=== PATIENT | male | born 1965 | race Caucasian/White ===

== ENCOUNTER → 2020-07-28 15:15 | Outpatient (CLI) | payer OTHER, SELFPAY ==
--- NOTE | 2020-07-28 15:19 | ECHOCS_ITS ---
Reason For Study: ABNORMAL EKG Procedure This was a 2D Doppler, Color Flow transthoracic echocardiogram. The study was technically difficult. Due to body habitus. Contrast injection was performed. Exam performed in department. Left Ventricle Normal LV size. Left ventricular systolic function is normal. The estimated ejection fraction is 60 %. Stage 1 diastolic dysfunction. No regional wall motion abnormalities noted. Right Ventricle Normal RV size. Normal systolic function. Atria Normal left atrium. Normal right atrium. Mitral Valve Normal mitral valve. Tricuspid Valve Normal tricuspid valve. Mild (1+) tricuspid valve insufficiency. Pulmonary artery systolic pressure is 25 mmHg. Aortic Valve The aortic valve is not well visualized. Pulmonic Valve Normal pulmonic valve. Great Vessels Normal aortic root. The pulmonary artery is normal size. Normal inferior vena cava. Pericardium/Pleural No pericardial effusion. Medication 22 gauge I.V. with prn adaptor inserted into left arm. Diluted definity 3.5ml given slow IV push to enhance endocardial definition. MMode/2D Measurements & Calculations LVIDd: 5.2 cm IVSd: 1.1 cm Ao root diam: 3.6 cm LVIDs: 3.6 cm LVPWd: 1.1 cm RVDd: 3.6 cm FS: 31.9 % LAV(MOD-bp): 60.9 ml LVAd ap4: 36.5 cm2 SV(MOD-sp4): 57.3 ml LAV(MOD-bp) Indexed: 28.0 ml/m2 EDV(MOD-sp4): 116.8 ml LAV(MOD-sp2): 60.4 ml EDV(sp4-el): 124.9 ml LAV(MOD-sp4): 60.7 ml LVAs ap4: 23.7 cm2 ESV(MOD-sp4): 59.5 ml ESV(sp4-el): 60.6 ml EF(MOD-sp4): 49.1 % EF(sp4-el): 51.5 % SV(sp4-el): 64.3 ml LA A4 area: 20.0 cm2 LA dimension(2D): 4.1 cm RA A4 area: 15.3 cm2 Time Measurements MV dec time: 0.27 sec Doppler Measurements & Calculations MV E max patel: 66.5 cm/sec Lat Peak E' Patel: 9.1 cm/sec Med Peak E' Patel: 8.5 cm/sec MV A max patel: 71.5 cm/sec E/E' lat: 7.3 E/E' med: 7.8 MV E/A: 0.93 Ao V2 max: 117.9 cm/sec LV V1 max: 107.3 cm/sec PA V2 max: 98.2 cm/sec Ao max P.6 mmHg LV V1 max P.6 mmHg TR max patel: 237.6 cm/sec TR max P.6 mmHg Interpretation Summary Normal LV size. Left ventricular systolic function is normal. The estimated ejection fraction is 60 %. Stage 1 diastolic dysfunction. Contrast injection was performed. The study was technically limited. Ordering Physician: Carmen Brand Referring Physician: Carmen Brand Performed By: Yarelis Mays RDCS, RVT
== END ==
PROVIDERS: PCP Nurse Practitioner; Referring Provider Nurse Practitioner; Visit Provider Nurse Practitioner
DX: R94.31 Abnormal electrocardiogram [ECG] [EKG] (principal)
CPT/HCPCS: 93306; Q9957; A4216; C8929

== ENCOUNTER 2020-09-20 15:53 | Emergency (ER) | payer OTHER, SELFPAY ==
[2020-09-20 15:54] VITALS: BP 112/68; PULSE 97; RESP 18; TEMP 36; O2SAT 94; BMI 33.3
--- NOTE | 2020-09-20 16:05 | EKG12_ITS ---
Test Reason : A FIB Blood Pressure : / mmHG Vent. Rate : 080 BPM Atrial Rate : 080 BPM P-R Int : 180 ms QRS Dur : 092 ms QT Int : 352 ms P-R-T Axes : 053 -18 059 degrees QTc Int : 405 ms Normal sinus rhythm Voltage criteria for left ventricular hypertrophy Abnormal ECG Confirmed by JERRY BRASWELL, ARMANDO ([id number]), slot editor BRIAN MATIAS ([id number]) on 09/22/2020 8:18:12 AM Referred By: DIANELYS Confirmed By:ARMANDO EDWARDS MD
--- NOTE | 2020-09-20 16:07 | EX.ED.DYSGE1 ---
HPI History of Present Illness Chief Complaint: Palpitations Informant: patient Onset/Context/Timing Onset: Today Current Severity: Mild Maximum Severity: Mild Narrative Narrative: The patient is a 54-year-old male with medical history significant for bronchospasm, hypertension, hyperlipidemia who presents to the emergency department from referral from his primary care due to new onset atrial fibrillation. The patient had Covid in May. He states since then, he has had a lot of difficulty with his recovery. He has been having elevated blood pressures at home. He denies chest pain or shortness of breath. He denies orthopnea or weight gain. He has been following with pulmonology and with his primary care. Today he was in for just a well check. They noticed that his heart rate was regular. EKG was done which was concerning for atrial fibrillation. The patient was sent in for further evaluation. Prior similar symptoms: No Recent Illness/Hospitalization: Yes [facility] Medical History Hypertension Allergy/AdvReac Type Severity Reaction Status Date / Time No Known Allergies Allergy Verified 09/20/20 15:53 Surgical History Previous back surgery Social History Smoking Status: Never smoker ROS ROS ED Constitutional Constitutional ED: Denies chills or fever(s) Eyes Eyes: Denies blurry vision or change in vision ENT ENT ED: Denies ear pain or sore throat Cardiovascular Cardiovascular: Denies chest pain or palpitations Respiratory/Chest Respiratory/Chest: Denies cough, dyspnea or dyspnea on exertion Gastrointestinal Gastrointestinal: Denies abdominal pain, nausea or vomiting Genitourinary Genitourinary ED: Denies dysuria or urinary frequency Musculoskeletal Musculoskeletal: Denies arthralgias or myalgias Integumentary Denies rash Neurologic Neurologic: Denies headache(s) or paresthesias Psychiatric Psychiatric: Denies anxiety or depression Endocrine Endocrinology: Denies polydipsia or polyuria Allergic/Immunologic Allergic/Immunologic ED: Denies urticaria EXAM Physical Exam Const Vital Signs: 09/20/20 15:54 09/20/20 16:08 Temperature 96.8 F L Temperature Source Temporal Pulse Rate 97 Respiratory Rate 18 Respiratory Effort Non-Labored Short of Breath Blood Pressure 112/68 Blood Pressure Mean 82 Pulse Ox 94 Oxygen Delivery Method Room Air Positive well nourished and well developed General Appearance ED: well developed HEENT Reports normocephalic, head/scalp atraumatic and moist mucous membranes Eyes PERRL and EOMs intact bilaterally Neck no lymphadenopathy and supple General: Negative for tenderness Chest Wall inspection of chest normal Resp normal respiratory effort and clear to auscultation bilaterally Cardio no murmurs Rhythm: abnormal rhythm GI normal to inspection, nondistended, normoactive bowel sounds Palpation: Negative for tender, guarding or rebound tenderness present Back/Spine no CVA tenderness Cervical Spine: Negative for cervical spine tenderness Thoracic Spine / Upper Back: Negative for thoracic spinal tenderness Extremity normal to inspection General Extremety ED: Negative for tenderness Neuro oriented x3 and CN's II-XII intact bilaterally Neuro Narrative: No focal deficits appreciated. Sensorium / Orientation: alert Psych mental status grossly normal Skin no rashes or lesions noted, no wounds and skin turgor normal MDM MDM MDM Narrative Medical decision making narrative: At the time the patient had arrived here. EKG was obtained. It was sinus rhythm. There was no acute ischemia. I did review his EKG from the office. It almost looks as if he was having atrial couplets. Patient was kept on a monitor. He would have a few PACs but no definitive atrial fibrillation. Labs were obtained were unremarkable. Chest x-ray shows no evidence of volume overload, pneumothorax, or other dangerous process. With the patient's history, I did discuss his case with Dr. Valdez. At this point, the patient only has a [id number] and we do not have a definitive capture of the atrial fibrillation. With his history of anemia, we are going to hold on anticoagulation which I feel is reasonable. The patient will be set up with a Holter monitor and will be seen in the office later this week with cardiology. He is comfortable with this plan of care. Impression 1. Atrial arrhythmia Lab Data Attestation: I reviewed the patient's lab results. Labs: Laboratory Results - last 24 hr 09/20/20 09/20/20 09/20/20 16:25 16:25 16:25 WBC 9.2 RBC 4.91 Hgb 13.5 Hct 43.2 MCV 88.0 MCH 27.5 MCHC 31.3 L RDW Std Deviation 55.5 H RDW Coeff of Volodymyr 17.2 H Plt Count 210 MPV 11.8 Immature Gran % (Auto) 0.300 Neut % (Auto) 58.6 Lymph % (Auto) 31.7 [place] % (Auto) 7.3 Eos % (Auto) 1.6 Baso % (Auto) 0.5 Absolute Neuts (auto) 5.4 Absolute Lymphs (auto) 2.91 Nucleated RBC % 0 Sodium 139 Potassium 3.8 Chloride 107 Carbon Dioxide 25.0 Anion Gap 7 BUN 16 Creatinine 1.27 Estim Creat Clear Calc 68.66 Est GFR (MDRD) Af Amer 76 Est GFR (MDRD) Non-Af 63 BUN/Creatinine Ratio 12.6 Glucose 108 H Calcium 8.7 Magnesium 2.2 Total Bilirubin 0.40 AST 13 L ALT 31 Alkaline Phosphatase 90 Troponin I < 0.015 B-Natriuretic Peptide 8.7 Total Protein 7.2 Albumin 3.7 Globulin 3.5 Albumin/Globulin Ratio 1.1 Radiography Chest X-Ray - ED: 1 View, Read by ED Physician, Normal, Heart, Lungs, Mediastinum, Bony Structures and No Acute Disease Diagnostic Testing: Radiology Impression Chest X-Ray 09/20/20 16:40 IMPRESSION: No radiographic evidence of acute cardiopulmonary disease. at 1706 Reported and signed by: Tushar Zuniga MD Electronically Signed: Tushar Zuniga MD at 17:04 EDT Tel , Service support , Discharge Plan Triage Chief Complaint: Palpitations ED Provider: Stevan Rodas Dx/Rx/DC Orders Instructions: ED Palpitations Primary Care Provider: Carmen Brand NP Referrals: Buck Joaquin MD [STAFF PHYSICIAN] - 3-5 Days Carmen Brand NP, [employer] [Primary Care Provider] -
--- NOTE | 2020-09-20 16:40 | RAD_ITS ---
HISTORY: sob EXAMINATION/TECHNIQUE: XR Chest 1 View: Portable upright AP chest x-ray COMPARISON: None FINDINGS: LINES/DEVICES: None. LUNGS: No consolidation, edema or effusion. No pneumothorax. MEDIASTINUM AND CARDIOVASCULAR STRUCTURES: Cardiac silhouette not enlarged. Central airways and mediastinal contour are unremarkable for the degree of rotation. BONES AND SOFT TISSUES: No acute bony abnormalities. RAD/Chest 1 View (Portable) IMPRESSION: No radiographic evidence of acute cardiopulmonary disease. at 1706 Reported and signed by: Tushar Zuniga MD Electronically Signed: Tushar Zuniga MD at 17:04 EDT Tel , Service support ,
[2020-09-20 17:10] LABS: Absolute Lymphocyte Count 2.91 X10^3/uL (0.83-4.51); Absolute Neutrophil Count 5.4 X10^3/uL (2.0-7.7); Basophil# 0.05 X10^3/uL; Basophil% 0.5 % (0-1); Eosinophil# 0.15 X10^3/uL; Eosinophils% 1.6 % (0-5); Hematocrit 43.2 % (40-54); Hemoglobin 13.5 g/dL (13.0-16.5); Lymphocyte # 2.91 X10^3/ul (0.83-4.51); Lymphocyte % 31.7 % (19-41); Mean Corp Hgb Conc 31.3 g/dL (32-36); Mean Corpuscular Hgb 27.5 pg (27.0-32.0); Mean Platelet Vol. 11.8 fl (6.2-12.0); Monocyte# 0.67 X10^3/uL; Monocyte% 7.3 % (0-10); NRBC Flagged by Analyzer 0 % (0-5); Neutrophil # 5.38 X10^3/uL (2.7-7.7); Neutrophil % 58.6 % (47-70); Platelet Count 210 K/mm3 (150-450); RBC Distribution Width CV 17.2 % (11.6-14.6); RBC Distribution Width SD 55.5 fl (35.1-43.9); Red Blood Count 4.91 M/mm3 (4.6-6.2); White Blood Count 9.2 K/mm3 (4.4-11.0)
[2020-09-20 17:31] LABS: ALB/GLOB Ratio 1.1 RATIO (0.9-2.4); AST(SGOT) 13 U/L (15-37); Alanine Aminotransfer ALT/SGPT 31 U/L (16-61); Albumin, Serum 3.7 g/dL (3.2-5.0); Alkaline Phosphatase 90 U/L (45-117); Anion Gap 7 (5-15); BUN 16 mg/dL (7-18); BUN/Creat Ratio 12.6 RATIO (10-20); Calcium,Total 8.7 mg/dL (8.5-10.1); Chloride 107 mmol/L (98-107); Creatinine, Serum 1.27 mg/dL (0.70-1.30); EST Glomerular Filtration Rate 63 mL/min (>60); Est Glom Filt Rate - Afr Amer 76 mL/min (>60); Estimated Creatinine Clearance 68.66 ml/min; Globulin 3.5 g/dL (2.2-4.2); Glucose 108 mg/dL (74-106); Magnesium 2.2 mg/dL (1.6-2.6); Potassium 3.8 mmol/L (3.5-5.1); Protein, Total 7.2 g/dL (6.4-8.2); Sodium Level 139 mmol/L (136-145)
[2020-09-20 17:33] LABS: BNP,B-Type NATRIURETIC PEPTIDE 8.7 pg/mL (0-100)
[2020-09-20 18:07] VITALS: BP 119/79; PULSE 66; RESP 17; O2SAT 96
[2020-09-20 18:22] LABS: Ferritin 24 ng/mL (26-388)
== END 2020-09-20 18:12 | disposition home or self-care (01) ==
LOC: ED 16:49
PROVIDERS: Emergency Provider Emergency Medicine; PCP Nurse Practitioner
DX: R00.2 Palpitations (principal); I49.1 Atrial premature depolarization; I10 Essential (primary) hypertension; E78.5 Hyperlipidemia, unspecified; I48.91 Unspecified atrial fibrillation; Z86.2 Personal history of diseases of the blood and blood-forming organs and certain disorders involving the immune mechanism
CPT/HCPCS: 71045; 80053; 82728; 83735; 83880; 84484; 85025; 93005; 93225; 99284; A4216

== ENCOUNTER → 2020-09-20 17:49 | Outpatient (CLI) | payer OTHER, SELFPAY ==
[2020-09-20 15:54] VITALS: BMI 33.3
== END ==
PROVIDERS: PCP Nurse Practitioner; Visit Provider Emergency Medicine
DX: Z00.00 Encounter for general adult medical examination without abnormal findings (principal)
CPT/HCPCS: 93225; 93226

== ENCOUNTER → 2020-10-05 | Outpatient (CLI) | payer OTHER, SELFPAY ==
[2020-09-20 15:54] VITALS: BMI 33.3
[2020-10-05 13:37] LABS: Absolute Lymphocyte Count 3.19 X10^3/uL (0.83-4.51); Absolute Neutrophil Count 4.8 X10^3/uL (2.0-7.7); Basophil# 0.05 X10^3/uL; Basophil% 0.6 % (0-1); Eosinophil# 0.19 X10^3/uL; Eosinophils% 2.2 % (0-5); Hematocrit 45.4 % (40-54); Hemoglobin 14.3 g/dL (13.0-16.5); Lymphocyte # 3.19 X10^3/ul (0.83-4.51); Lymphocyte % 36.1 % (19-41); Mean Corp Hgb Conc 31.5 g/dL (32-36); Mean Corpuscular Hgb 28.3 pg (27.0-32.0); Mean Corpuscular Volume 89.9 fL (80-94); Mean Platelet Vol. 12.2 fl (6.2-12.0); Monocyte# 0.56 X10^3/uL; Monocyte% 6.3 % (0-10); NRBC Flagged by Analyzer 0 % (0-5); Neutrophil # 4.81 X10^3/uL (2.7-7.7); Neutrophil % 54.5 % (47-70); Platelet Count 210 K/mm3 (150-450); RBC Distribution Width CV 16.9 % (11.6-14.6); RBC Distribution Width SD 56.4 fl (35.1-43.9); Red Blood Count 5.05 M/mm3 (4.6-6.2); White Blood Count 8.8 K/mm3 (4.4-11.0)
[2020-10-05 13:49] LABS: D-Dimer Quantitative (DVT/PE) <= 0.27 FEU/ug/m (0.27-0.49)
[2020-10-05 13:50] LABS: BNP,B-Type NATRIURETIC PEPTIDE 41.9 pg/mL (0-100)
[2020-10-05 14:01] LABS: Anion Gap 4 (5-15); BUN 15 mg/dL (7-18); BUN/Creat Ratio 13.5 RATIO (10-20); Calcium,Total 9.1 mg/dL (8.5-10.1); Chloride 109 mmol/L (98-107); Creatinine, Serum 1.11 mg/dL (0.70-1.30); EST Glomerular Filtration Rate 73 mL/min (>60); Est Glom Filt Rate - Afr Amer 89 mL/min (>60); Glucose 116 mg/dL (74-106); Potassium 3.9 mmol/L (3.5-5.1); Sodium Level 140 mmol/L (136-145); Thyroid Stim Hormone (TSH) 0.26 uIU/mL (0.358-3.74)
== END | disposition home or self-care (01) ==
PROVIDERS: PCP Nurse Practitioner; Referring Provider Nurse Practitioner; Visit Provider Nurse Practitioner
DX: R07.9 Chest pain, unspecified (principal)
CPT/HCPCS: 80048; 83880; 84443; 84484; 85025; 85379

== ENCOUNTER 2020-10-14 09:41 | Observation (INO) | payer OTHER, SELFPAY ==
[2020-10-14] VITALS (11 sets, daily range): BP systolic 107–143; BP diastolic 64–99; PULSE 50–113; RESP 11–18; TEMP 36.4–36.9; O2SAT 95–99; BMI 34.4; BMI 32.8
--- NOTE | 2020-10-14 09:45 | RAD_ITS ---
STUDY: X-RAY CHEST REASON FOR EXAM: Male, 54 years old. Shortness of breath and chest tightness. TECHNIQUE: Single AP portable view of the chest. COMPARISON: Comparison is made with prior study dated 09/20/2020. FINDINGS: EKG electrodes are seen. The lungs are clear and expanded. There is no demonstrated pleural abnormality. Normal size heart. Normal mediastinum and mercedes. Normal visualized pulmonary arteries. Normal visualized aortic arch and descending thoracic aorta. There are diffuse degenerative changes of the visualized thoracic spine. Normal visualized ribs, clavicles, and shoulders. There is no demonstrated abnormality of the visualized soft tissue structures of the upper abdomen. RAD/Chest 1 View (Portable) IMPRESSION: Normal x-ray examination of the chest. Electronically Signed: Taj Schmidt MD at 10:40 EDT , Service support ,
--- NOTE | 2020-10-14 09:45 | EKG12_ITS ---
Test Reason : Blood Pressure : / mmHG Vent. Rate : 108 BPM Atrial Rate : 110 BPM P-R Int : 000 ms QRS Dur : 084 ms QT Int : 284 ms P-R-T Axes : 000 -15 079 degrees QTc Int : 380 ms Atrial fibrillation Abnormal ECG Confirmed by JERRY BRASWELL, ARMANDO ([id number]), book editor BRIAN MATIAS ([id number]) on 10/18/2020 9:49:17 AM Referred By: Confirmed By:ARMANDO EDWARDS MD
--- NOTE | 2020-10-14 09:48 | ED.VIS.CHEST ---
HPI History of Present Illness Chief Complaint: Chest Pain Informant: patient Onset/Context/Timing Onset: Today Activity at onset: gradual Timing: Continuous Quality: Positive for Heaviness and Tightness Location: Substernal Current Severity: Moderate Maximum Severity: Moderate Worsened By: Nothing Relieved By: Nothing Associated Symptoms: Positive for Dyspnea and Palpitations Narrative Narrative: The patient is a 54-year-old male medical history significant for hypertension hyperlipidemia and recent diagnosis of atrial fibrillation who presents to the emergency department with heart racing and chest tightness. The patient was diagnosed with A. fib just about a month ago. He had a Holter monitor and has been on Eliquis and metoprolol. He states from time to time, he will go into runs of A. fib that lasted a few hours. He states today, just would not go away. He states with it, he felt like he was having chest pressure and some shortness of breath. He has been compliant with his medications. He denies any history of coronary vascular disease. [facility] Medical History (Updated 10/14/20 @ 09:54 by Kika Licona) Atrial fibrillation COVID-19 Hypertension Inguinal hernia Home Medications albuterol sulfate 1 puff INHALATION Q4H PRN PRN 10/14/20 [History Last Taken Unknown] amlodipine 5 mg PO DAILY 10/14/20 [History Last Taken Unknown] apixaban [Eliquis] 5 mg PO BID 10/14/20 [History Last Taken Unknown] cyanocobalamin (vitamin B-12) [Vitamin B-12] 25,800 mcg PO DAILY 10/14/20 [History Last Taken Unknown] duloxetine 60 mg PO DAILY 10/14/20 [History Last Taken Unknown] ferrous sulfate 325 mg PO BID 10/14/20 [History Last Taken Unknown] metoprolol succinate 25 mg PO DAILY 10/14/20 [History Last Taken Unknown] omeprazole 40 mg PO DAILY 10/14/20 [History Last Taken Unknown] valsartan 80 mg PO BID 10/14/20 [History Last Taken Unknown] Allergy/AdvReac Type Severity Reaction Status Date / Time No Known Allergies Allergy Verified 10/14/20 09:45 Surgical History Previous back surgery Social History Smoking Status: Never smoker ROS ROS ED Constitutional Constitutional ED: Denies chills or fever(s) Eyes Eyes: Denies blurry vision or change in vision ENT ENT ED: Denies ear pain or sore throat Cardiovascular Cardiovascular: Reports chest pain, palpitations and racing heartbeat Respiratory/Chest Respiratory/Chest: Denies cough, dyspnea or dyspnea on exertion Gastrointestinal Gastrointestinal: Denies abdominal pain, nausea or vomiting Genitourinary Genitourinary ED: Denies dysuria or urinary frequency Musculoskeletal Musculoskeletal: Denies arthralgias or myalgias Integumentary Denies rash Neurologic Neurologic: Denies headache(s) or paresthesias Psychiatric Psychiatric: Denies anxiety or depression Endocrine Endocrinology: Denies polydipsia or polyuria Allergic/Immunologic Allergic/Immunologic ED: Denies urticaria EXAM Physical Exam Const Vital Signs: 10/14/20 09:42 10/14/20 09:45 10/14/20 10:16 Temperature 97.5 F L Temperature Source Oral Pulse Rate 110 H 113 H Respiratory Rate 18 Blood Pressure 143/93 H Blood Pressure Mean 109 Pulse Ox 99 Oxygen Delivery Method Room Air Room Air 10/14/20 10:21 Temperature Temperature Source Pulse Rate 84 Respiratory Rate 11 L Blood Pressure 118/99 H Blood Pressure Mean 105 Pulse Ox 97 Oxygen Delivery Method Room Air Positive well nourished and well developed General Appearance ED: well developed HEENT Reports normocephalic, head/scalp atraumatic and moist mucous membranes Eyes PERRL and EOMs intact bilaterally Neck no lymphadenopathy and supple General: Negative for tenderness Chest Wall inspection of chest normal Resp normal respiratory effort and clear to auscultation bilaterally Cardio no murmurs Rate: tachycardic Rhythm: abnormal rhythm GI normal to inspection, nondistended, normoactive bowel sounds Palpation: Negative for tender, guarding or rebound tenderness present Back/Spine no CVA tenderness Cervical Spine: Negative for cervical spine tenderness Thoracic Spine / Upper Back: Negative for thoracic spinal tenderness Extremity normal to inspection General Extremety ED: Negative for tenderness Neuro oriented x3 and CN's II-XII intact bilaterally Neuro Narrative: No focal deficits appreciated. Sensorium / Orientation: alert Psych mental status grossly normal Skin no rashes or lesions noted, no wounds and skin turgor normal Heart Score History: Moderately Suspicious ECG: Nonspecific Repolarization Age: >45 - <65 years Risk Factors: 1 or 2 Risk Factors Troponin: </= Normal Limit Score: 4 MDM MDM MDM Narrative Medical decision making narrative: The patient presents to the emergency department with chest tightness, shortness of breath, and palpitations. EKG was obtained. He was in atrial fibrillation with rapid ventricular response. There is no evidence of acute ischemia. The patient was given 5 mg Lopressor with better rate control. Screening labs including cardiac enzymes were unremarkable. I do feel that a lot of his symptoms are likely because of his intermittent atrial fibrillation, but he is been having chest tightness and exertional dyspnea. I do feel that he is going to require further cardiac work-up. The patient will be admitted at this time. Impression Atrial fibrillation with rapid ventricular response 2. Chest tightness Lab Data Attestation: I reviewed the patient's lab results. Labs: Laboratory Results - last 24 hr 10/14/20 10/14/20 09:45 09:45 WBC 11.2 H RBC 5.46 Hgb 15.7 Hct 49.0 MCV 89.7 MCH 28.8 MCHC 32.0 RDW Std Deviation 53.6 H RDW Coeff of Volodymyr 16.4 H Plt Count 221 MPV 11.5 Immature Gran % (Auto) 0.300 Neut % (Auto) 53.7 Lymph % (Auto) 35.4 [place] % (Auto) 7.8 Eos % (Auto) 2.3 Baso % (Auto) 0.5 Absolute Neuts (auto) 6.0 Absolute Lymphs (auto) 3.97 Nucleated RBC % 0 Sodium 140 Potassium 4.5 Chloride 105 Carbon Dioxide 30.0 Anion Gap 5 BUN 16 Creatinine 1.16 Estim Creat Clear Calc 72.80 Est GFR (MDRD) Af Amer 84 Est GFR (MDRD) Non-Af 70 BUN/Creatinine Ratio 13.8 Glucose 105 Calcium 9.2 Magnesium 2.3 Troponin I < 0.015 Radiography Diagnostic Testing: Radiology Impression Chest X-Ray 10/14/20 09:45 IMPRESSION: Normal x-ray examination of the chest. Electronically Signed: Taj Schmidt MD at 10:40 EDT , Service support , Rhythm Strip Rhythm Strip: A-fib Rate: 120 Ectopy: PAC(s) EKG Initial EKG: Attestation: I personally reviewed and interpreted this EKG as follows: Interpretation: Atrial Fibrillation and Non-Specific ST Changes Prior EKG tracings: available for review Prior: Unchanged Discharge Plan Triage Chief Complaint: Chest Pain ED Provider: Stevan Rodas Dx/Rx/DC Orders Prescriptions: No Action cyanocobalamin (vitamin B-12) [Vitamin B-12] 2,500 mcg tablet, sublingual 25,800 mcg PO DAILY RF: 0 valsartan 80 mg tablet 80 mg PO BID RF: 0 amlodipine 5 mg tablet 5 mg PO DAILY RF: 0 omeprazole 40 mg capsule,delayed release(DR/EC) 40 mg PO DAILY RF: 0 ferrous sulfate 325 mg (65 mg iron) tablet 325 mg PO BID RF: 0 metoprolol succinate 25 mg tablet extended release 24 hr 25 mg PO DAILY RF: 0 albuterol sulfate 90 mcg/actuation HFA aerosol inhaler 1 puff INHALATION Q4H PRN PRN (Reason: SOB) RF: 0 duloxetine 60 mg capsule,delayed release(DR/EC) 60 mg PO DAILY RF: 0 Eliquis 5 mg Tablet 5 mg PO BID RF: 0 Primary Care Provider: Carmen Brand NP
[2020-10-14 09:59] LABS: Absolute Lymphocyte Count 3.97 X10^3/uL (0.83-4.51); Basophil# 0.06 X10^3/uL; Basophil% 0.5 % (0-1); Eosinophil# 0.26 X10^3/uL; Eosinophils% 2.3 % (0-5); Hemoglobin 15.7 g/dL (13.0-16.5); Lymphocyte # 3.97 X10^3/ul (0.83-4.51); Lymphocyte % 35.4 % (19-41); Mean Corpuscular Hgb 28.8 pg (27.0-32.0); Mean Corpuscular Volume 89.7 fL (80-94); Mean Platelet Vol. 11.5 fl (6.2-12.0); Monocyte# 0.88 X10^3/uL; Monocyte% 7.8 % (0-10); NRBC Flagged by Analyzer 0 % (0-5); Neutrophil # 6.03 X10^3/uL (2.7-7.7); Neutrophil % 53.7 % (47-70); Platelet Count 221 K/mm3 (150-450); RBC Distribution Width CV 16.4 % (11.6-14.6); RBC Distribution Width SD 53.6 fl (35.1-43.9); Red Blood Count 5.46 M/mm3 (4.6-6.2); White Blood Count 11.2 K/mm3 (4.4-11.0)
[2020-10-14 10:11] LABS: Anion Gap 5 (5-15); BUN 16 mg/dL (7-18); BUN/Creat Ratio 13.8 RATIO (10-20); Calcium,Total 9.2 mg/dL (8.5-10.1); Chloride 105 mmol/L (98-107); Creatinine, Serum 1.16 mg/dL (0.70-1.30); EST Glomerular Filtration Rate 70 mL/min (>60); Est Glom Filt Rate - Afr Amer 84 mL/min (>60); Glucose 105 mg/dL (74-106); Magnesium 2.3 mg/dL (1.6-2.6); Potassium 4.5 mmol/L (3.5-5.1); Sodium Level 140 mmol/L (136-145)
[2020-10-14] MEDS: Aspirin 81 MG TAB.CHEW 324 MG PO (10:13)
[2020-10-14] MEDS: Metoprolol Tartrate 5 MG/5 ML Vial IV (10:15)
[2020-10-14 10:44] LABS: BNP,B-Type NATRIURETIC PEPTIDE 59.7 pg/mL (0-100)
--- NOTE | 2020-10-14 11:44 | PCM.HP.STD ---
HPI - General General Date of Admission: 10/14/20 HPI Narrative TUAN JOSÉ, is a 54 M who Came to ER with chest tightness about 5:15 AM which woke him up. Prior to that, patient recently diagnosed hypertension about 2 to 3 months after he had a Covid 90 infection in May 2020. He is on metoprolol succinate 25 mg daily and valsartan 80 mg p.o. twice daily. About a week ago, he had palpitations and found to be A. fib by PCP and started on metoprolol succinate and Eliquis. Patient also had Holter monitor on September 20, 2020 which showed 17.3% of A. fib, multiple PVCs, trigeminy, PACs and heart rate ranged between 48 to 176/min. 2D echo in July 2020 showed EF 60% with stage I diastolic dysfunction, mild TR otherwise technically limited study. Today, patient complained of chest tightness vague from right to left, 4-6/10 intensity, associated with shortness of breath, mild dizziness and diaphoresis. Patient does not have leg swelling. In ED, heart rate was found 110/min but no hypoxia or tachypnea. Twelve-lead EKG shows A. fib at 108 bpm, QRS 84 ms, QTC 380 ms. Patient was given IV Lopressor 5 mg and heart rate controlled in 80s to 90s per minute. First set of troponin negative. Patient is further admitted. [facility] Medical History (Updated 10/14/20 @ 11:[address] Zachary Dougherty MD) Atrial fibrillation COVID-19 Hypertension Inguinal hernia Home Medications albuterol sulfate 1 puff INHALATION Q4H PRN PRN 10/14/20 [History Last Taken Unknown] amlodipine 5 mg PO DAILY 10/14/20 [History Last Taken Unknown] apixaban [Eliquis] 5 mg PO BID 10/14/20 [History Last Taken Unknown] cyanocobalamin (vitamin B-12) [Vitamin B-12] 25,800 mcg PO DAILY 10/14/20 [History Last Taken Unknown] duloxetine 60 mg PO DAILY 10/14/20 [History Last Taken Unknown] ferrous sulfate 325 mg PO BID 10/14/20 [History Last Taken Unknown] metoprolol succinate 25 mg PO DAILY 10/14/20 [History Last Taken Unknown] omeprazole 40 mg PO DAILY 10/14/20 [History Last Taken Unknown] valsartan 80 mg PO BID 10/14/20 [History Last Taken Unknown] Allergy/AdvReac Type Severity Reaction Status Date / Time No Known Allergies Allergy Verified 10/14/20 09:45 Family History (Updated 10/14/20 @ 11:[address] Zachary Dougherty MD) Father Heart disease CHF in 50s Sister A-fib Surgical History Previous back surgery Social History Smoking Status: Never smoker ROS ROS Narrative Constitutional: Reports mild fatigue and weakness HEENT: Reports systems reviewed and no addt'l complaints, except as documented Respiratory/Chest: Chest tightness and shortness of breath as mentioned in HPI. Gastrointestinal: Denies coffee ground emesis, hematemesis or vomiting Genitourinary: Denies burning urination Musculoskeletal: Reports joint pain and limited range of motion Neurologic: Denies seizure-like activity skin: No ulcer. No rash Endocrinology: Reports systems reviewed and no addt'l complaints, except as documented Hematologic/Lymphatic: Reports systems reviewed and no addt'l complaints, except as documented Rest 12 ROS are negative except as mentioned in HPI Vital Signs Vital Signs Vital Signs: 10/14/20 09:42 10/14/20 09:45 10/14/20 10:16 Temperature 97.5 F L Temperature Source Oral Pulse Rate 110 H 113 H Respiratory Rate 18 Blood Pressure 143/93 H Blood Pressure Mean 109 Pulse Ox 99 Oxygen Delivery Method Room Air Room Air 10/14/20 10:21 10/14/20 10:52 Temperature 97.8 F Temperature Source Temporal Pulse Rate 84 90 Respiratory Rate 11 L 17 Blood Pressure 118/99 H 109/80 Blood Pressure Mean 105 89 Pulse Ox 97 95 Oxygen Delivery Method Room Air Room Air Weight Weight: 233 lb 0.458 oz Body Mass Index (BMI) 34.4 Physical Exam Narrative General: Alert, Oriented x3, Cooperative HEENT: Atraumatic, PERRLA, EOMI, Normocephalic Oral: No Gingival or Mucosal Lesions/ Ulcerations Neck: Supple, No JVD, Negative Carotid Bruits Lungs: Air entry diminished in bilateral lung bases. No crepitation/rhonchi Cardiovascular: Regular rate and rhythm, A. fib, Normal S1, Normal S2, No murmurs Abdomen: Bowel Sounds Present, Soft, Non Tender, Non-Distended : No renal angle tenderness. No suprapubic tenderness. Extremities: No edema, Capillary Refill Less than 3 Seconds Skin: No rashes, No breakdown Musculoskeletal: No Tenderness to Palpation of Joints or Extremities Neurological: Cranial nerves II-XII grossly intact, Deep Tendon Reflexes 2+/4 and Symmetrical, Neuro grossly intact Psych/Mental Status: Normal Affect, Appropriate. Results Lab / Micro Data Result Diagrams: 10/14/20 09:45 10/14/20 09:45 Labs: Laboratory Results - last 24 hr 10/14/20 10/14/20 10/14/20 09:45 09:45 09:45 WBC 11.2 H RBC 5.46 Hgb 15.7 Hct 49.0 MCV 89.7 MCH 28.8 MCHC 32.0 RDW Std Deviation 53.6 H RDW Coeff of Volodymyr 16.4 H Plt Count 221 MPV 11.5 Immature Gran % (Auto) 0.300 Neut % (Auto) 53.7 Lymph % (Auto) 35.4 Woods % (Auto) 7.8 Eos % (Auto) 2.3 Baso % (Auto) 0.5 Absolute Neuts (auto) 6.0 Absolute Lymphs (auto) 3.97 Nucleated RBC % 0 Sodium 140 Potassium 4.5 Chloride 105 Carbon Dioxide 30.0 Anion Gap 5 BUN 16 Creatinine 1.16 Estim Creat Clear Calc 72.80 Est GFR (MDRD) Af Amer 84 Est GFR (MDRD) Non-Af 70 BUN/Creatinine Ratio 13.8 Glucose 105 Calcium 9.2 Magnesium 2.3 Troponin I < 0.015 B-Natriuretic Peptide 59.7 Rhythm Strip Rhythm Strip: A-fib Rate: 120 Ectopy: PAC(s) Radiology Impression Chest X-Ray 10/14/20 09:45 IMPRESSION: Normal x-ray examination of the chest. Electronically Signed: Taj Schmidt MD at 10:40 EDT , Service support , Assessment & Plan Assessment/Plan (1) Atypical chest pain: (2) Atrial fibrillation: PLAN: This 54-year-old woman with recent diagnosis of A. fib admitted with chest tightness and A. fib with RVR. 1. Atypical chest pain/tightness: Patient is being admitted to PCU. Serial troponin enzymes. Repeat EKG. Treadmill nuclear stress test tomorrow a.m. Fasting lipid profile, A1c and TSH tomorrow a.m. 2. A. fib with RVR: Patient on metoprolol succinate 25 mg daily and Eliquis 5 mg twice daily. Started on metoprolol tartrate 25 mg p.o. twice daily and Eliquis continued. Monitor heart rate. 3. Hypertension: On amlodipine and valsartan continued. 4. Obesity grade 2: Weight loss counseling done. BMI 34.2 kg/m? VTE prophylaxis: Already on Eliquis 5 mg twice daily. CODE STATUS: Full Charges/Coding Visit Charges OBSV E&M: 91086 Initial observation care L3
--- NOTE | 2020-10-14 13:01 | EKG12_ITS ---
Test Reason : AFIB Blood Pressure : / mmHG Vent. Rate : 057 BPM Atrial Rate : 057 BPM P-R Int : 180 ms QRS Dur : 090 ms QT Int : 406 ms P-R-T Axes : 016 -21 040 degrees QTc Int : 395 ms Sinus bradycardia Voltage criteria for left ventricular hypertrophy Abnormal ECG When compared with ECG of 14-OCT-2020 09:44, MANUAL COMPARISON REQUIRED, DATA IS UNCONFIRMED Confirmed by ABIODUN BRASWELL, LEENA ([id number]), editor department BRIAN MATIAS ([id number]) on 10/18/2020 10:39:48 AM Referred By: DAVIN Confirmed By:KERI RASCON MD
[2020-10-14] MEDS: 0.9% Normal Saline 1,000 ML 75 ML IV (13:35)
--- NOTE | 2020-10-14 18:34 | NURSING ---
This RN called and talked to pt's to let her know cardiology has been consulted.
[2020-10-14] MEDS: APIXABAN 5 MG TABLET PO (20:41)
[2020-10-14] MEDS: Losartan Potassium 25 MG Tablet PO (20:41)
[2020-10-14] MEDS: Atorvastatin Calcium 40 MG Tablet PO (20:41)
[2020-10-15] VITALS (10 sets, daily range): BP systolic 106–133; BP diastolic 67–84; PULSE 58–106; RESP 15–18; TEMP 36.4–36.7; O2SAT 93–99
--- NOTE | 2020-10-15 01:41 | NURSING ---
Pt requested evening meds before 2100 when this RN was rounding.
[2020-10-15 05:12] LABS: Cholesterol 194 mg/dL (200); High Density Lipoprotein 27 mg/dL; Phosphorus 3.6 mg/dL (2.5-4.9); Triglycerides 188 mg/dL; Very Low Density Lipoprotein 38 mg/dL (5-40)
--- NOTE | 2020-10-15 05:55 | EKG12_ITS ---
Test Reason : AM EKG Blood Pressure : / mmHG Vent. Rate : 060 BPM Atrial Rate : 060 BPM P-R Int : 190 ms QRS Dur : 092 ms QT Int : 444 ms P-R-T Axes : 056 -14 058 degrees QTc Int : 444 ms Normal sinus rhythm Nonspecific T wave abnormality Abnormal ECG Confirmed by JERRY BRASWELL, ARMANDO ([id number]), newspaper copy editor BRIAN MATIAS ([id number]) on 10/19/2020 10:43:33 AM Referred By: DR JIN Confirmed By:ARMANDO EDWARDS MD
[2020-10-15] MEDS: Aspirin E.C. 81 MG Tablet PO (06:18)
[2020-10-15 07:25] LABS: Hemoglobin A1c 5.4 % (3.8-5.6)
[2020-10-15] MEDS: Losartan Potassium 25 MG Tablet PO (10:21)
[2020-10-15] MEDS: DULoxetine Hcl 60 MG Capsule PO (10:22)
[2020-10-15] MEDS: APIXABAN 5 MG TABLET PO (10:22)
[2020-10-15] MEDS: amLODIPine 5 MG Tablet PO (10:22)
[2020-10-15] MEDS: Pantoprazole Sodium 40 MG Tablet PO (10:22)
[2020-10-15] MEDS: Cyanocobalamin 500 MCG Tablet 1000 MCG PO (10:23)
--- NOTE | 2020-10-15 10:57 | PCM.DC ---
Discharge Instructions Diet Discharge Diet: 2000 mg Sodium Diet Activity Discharge Activity: Return to Normal Activity Weight Bearing Status: Weight bearing as tolerated Dressing / Incision Call your doctor if you observe: Fever of 101 or Higher, Coldness, Increased Pain, Numbness or Tingling, Change in Color, Inability to urinate, Inability to have a bowel movement, Shortness of breath, Dizziness, Fainting spells, Swelling in the ankles, Chest pain, Prolonged hiccupping, Increased palpitations (irregular heartbeat) and Calf discomfort Follow Up Care Test Results: Test results from this visit will be discussed in further detail at your follow-up appointment, if applicable. Discharge Plan Admission Admit Date/Time: 10/14/20 11:42 Primary Reason for Your Visit: Atypical chest pain/A. fib with RVR Attending Provider: Zachary Dougherty Primary Care Provider: Carmen Brand NP Consulting Providers: Zenobia Issa Instructions Patient Instructions: Atrial Fibrillation, ED Chest Pain, Noncardiac Additional Instructions / Restrictions: Follow-up Dr. Rae for scheduled sleep study test Discharge Orders/Prescriptions Prescriptions: New atorvastatin 40 mg Tablet 40 mg PO QHS Qty: 30 RF: 2 metoprolol tartrate 25 mg tablet 25 mg PO BID Qty: 60 RF: 2 Continued cyanocobalamin (vitamin B-12) [Vitamin B-12] 2,500 mcg tablet, sublingual 25,800 mcg PO DAILY RF: 0 amlodipine 5 mg tablet 5 mg PO DAILY RF: 0 omeprazole 40 mg capsule,delayed release(DR/EC) 40 mg PO DAILY RF: 0 ferrous sulfate 325 mg (65 mg iron) tablet 325 mg PO BID RF: 0 duloxetine 60 mg capsule,delayed release(DR/EC) 60 mg PO DAILY RF: 0 Eliquis 5 mg Tablet 5 mg PO BID RF: 0 alprazolam 0.25 mg Tablet 0.25 mg PO Q12H PRN (Reason: Anxiety) RF: 0 fluticasone propionate [Flonase Allergy Relief] 50 mcg/actuation [place],Suspension 2 spray INTRANASAL DAILY RF: 0 meclizine 12.5 mg Tablet 12.5 mg PO Q8H PRN (Reason: Vertigo) RF: 0 albuterol sulfate [ProAir HFA] 90 mcg/actuation Hfa Aerosol Inhaler 2 puff INHALATION TID RF: 0 cholecalciferol (vitamin D3) [Vitamin D3] 50 mcg (2,000 unit) Tablet 2,000 unit PO DAILY RF: 0 valsartan 80 mg tablet 80 mg PO BID Qty: 0 RF: 0 Discontinued metoprolol succinate 25 mg tablet extended release 24 hr 25 mg PO DAILY RF: 0 Referrals / Follow Up: Buck Joaquin MD [STAFF PHYSICIAN] - Within 2 Weeks (A fib with RVR/Variable reate) Jeffy Rae MD [STAFF PHYSICIAN] - Within 2 Weeks (sleep study) Carmen Brand NP, [employer]M [employer] CHECKER-C [Primary Care Provider] - Disposition Disposition (needs filled in before D/C Order can be placed): Home, self care
--- NOTE | 2020-10-15 11:00 | PCM.DC.SUM ---
Providers Date of Admission: 10/14/20 Primary Care Physician: KRISH Coronado Consultations 10/14/20 18:25 Consult: Cardiology Routine Consulting Provider: Zenobia Issa Reason for Consult: unstable angina, afib RVR EMERGENT Consult: No MD Notified: Yes Date Notified:: 10/14/20 Time Notified: 18:25 Method of Notification: Verbal Comments:: dr valenzuela spoke with dr issa Reason For Visit: A FIB WITH RVR WITH CHEST PAIN Diagnosis Discharge Diagnosis (1) Atypical chest pain: Status: Acute Code(s): R07.89 - Other chest pain (2) Atrial fibrillation: Status: Acute Code(s): I48.91 - Unspecified atrial fibrillation Medications at Discharge Home Medications Eliquis 5 mg PO BID 10/14/20 albuterol sulfate [ProAir HFA] 2 puff INHALATION TID 10/14/20 alprazolam 0.25 mg PO Q12H PRN 10/14/20 amlodipine 5 mg PO DAILY 10/14/20 cholecalciferol (vitamin D3) [Vitamin D3] 2,000 unit PO DAILY 10/14/20 cyanocobalamin (vitamin B-12) [Vitamin B-12] 25,800 mcg PO DAILY 10/14/20 duloxetine 60 mg PO DAILY 10/14/20 ferrous sulfate 325 mg PO BID 10/14/20 fluticasone propionate [Flonase Allergy Relief] 2 spray INTRANASAL DAILY 10/14/20 meclizine 12.5 mg PO Q8H PRN 10/14/20 omeprazole 40 mg PO DAILY 10/14/20 atorvastatin 40 mg PO QHS #30 tab 10/15/20 metoprolol tartrate 25 mg PO BID #60 tab 10/15/20 valsartan 80 mg PO BID #0 tab 10/15/20 Hospital Course Summary of Care Provided Hospital Course: This 54, gentleman was admitted with chest tightness and A. fib with RVR. Patient already on metoprolol succinate 25 mg daily, Eliquis 5 mg twice daily and valsartan 80 mg twice daily at home. Patient also had Holter monitor on September 20, 2020 which showed 17.3% of A. fib, multiple PVCs, trigeminy, PACs and heart rate ranged between 48 to 176/min. 2D echo in July 2020 showed EF 60% with stage I diastolic dysfunction, mild TR otherwise technically limited study. First EKG in the ER shows A. fib at a rate of 80 bpm. IV Lopressor was given in ED heart rate is controlled to 90s and then bradycardia 50s to 60s per minute. Patient was admitted in PCU. Serial troponin enzymes negative. Patient converted to sinus rhythm in the afternoon of 10/13. Fasting profile shows low HDL, LDL 129. TSH normal. Patient was seen by jewelry setter. Lexiscan nuclear stress shows rare PVCs and isolated ventricular couplets during exercise and shows normal myocardial perfusion within normal limit. Patient again had mild chest discomfort for which EKG was done which shows sinus rhythm with moderate LVH at 64 beats minute. Patient has a scheduled sleep study in first week of November by Dr. Rae and advised to complete it. I think, morbid obesity and possible undiagnosed sleep apnea may be precipitating factor for A. fib. Patient might need to see buffing wheel former machine if sleep study normal and continues to have A. fib with variable heart rate. Discharge medication reconciliation done. Discharge follow-up instructions completed. Discharge process discussed with the patient and all questions were answered to patient's satisfaction. Follow-up with Dr. Joaquin in 2 to 3 weeks. Metoprolol succinate changed to metoprolol 25 mg twice daily for better heart rate control in view of variable heart rate. Total time spent, exact 35 minutes on discharge meds reconciliation, examination, coordination of care with nurses and ancillary staff, review of imaging and blood test and discussion with the patient and his on follow-up instructions Physical Exam Narrative Patient had chest discomfort/pain around afternoon time. Repeat EKG was done which shows sinus rhythm. Discussed with patient and present in the room. Discussed with the jewelry setter. General: Alert, Oriented x3, Cooperative HEENT: Atraumatic, PERRLA, EOMI, Normocephalic Oral: No Gingival or Mucosal Lesions/ Ulcerations Neck: Supple, No JVD, Negative Carotid Bruits Lungs: Air entry diminished in bilateral lung bases. No crepitation/rhonchi Cardiovascular: Regular rate and rhythm, A. fib, Normal S1, Normal S2, No murmurs Abdomen: Bowel Sounds Present, Soft, Non Tender, Non-Distended : No renal angle tenderness. No suprapubic tenderness. Extremities: No edema, Capillary Refill Less than 3 Seconds Skin: No rashes, No breakdown Musculoskeletal: No Tenderness to Palpation of Joints or Extremities Neurological: Cranial nerves II-XII grossly intact, Deep Tendon Reflexes 2+/4 and Symmetrical, Neuro grossly intact Psych/Mental Status: Normal Affect, Appropriate. ABG / Lab / Microbiology Data Result Diagrams: 10/14/20 09:45 10/14/20 09:45 Laboratory: Laboratory Results - last 24 hr 10/14/20 10/14/20 10/15/20 13:15 16:29 04:10 Hemoglobin A1c Phosphorus 3.6 Troponin I < 0.015 < 0.015 Triglycerides 188 Cholesterol 194 LDL Cholesterol 129 VLDL Cholesterol 38 HDL Cholesterol 27 L TSH 0.60 10/15/20 04:10 Hemoglobin A1c 5.4 Phosphorus Troponin I Triglycerides Cholesterol LDL Cholesterol VLDL Cholesterol HDL Cholesterol TSH Meaningful Use Info Meaningful Use Diagnoses (Choose all that apply): None applicable Discharge Plan Admission Admit Date/Time: 10/14/20 11:42 Primary Reason for Your Visit: Atypical chest pain/A. fib with RVR Attending Provider: Zachary Valenzuela Primary Care Provider: Carmen Brand NP Consulting Providers: Zenobia Issa Instructions Patient Instructions: Atrial Fibrillation, ED Chest Pain, Noncardiac Additional Instructions / Restrictions: Patient Problems: Altered Health Status related to Hospitalization Patient Goals: *Optimal Level of Health *Keep Appointments *Medication Compliance *Remain SafeFollow-up Dr. Rae for scheduled sleep study test Discharge Orders/Prescriptions Prescriptions: New atorvastatin 40 mg Tablet 40 mg PO QHS Qty: 30 RF: 2 metoprolol tartrate 25 mg tablet 25 mg PO BID Qty: 60 RF: 2 Continued cyanocobalamin (vitamin B-12) [Vitamin B-12] 2,500 mcg tablet, sublingual 25,800 mcg PO DAILY RF: 0 amlodipine 5 mg tablet 5 mg PO DAILY RF: 0 omeprazole 40 mg capsule,delayed release(DR/EC) 40 mg PO DAILY RF: 0 ferrous sulfate 325 mg (65 mg iron) tablet 325 mg PO BID RF: 0 duloxetine 60 mg capsule,delayed release(DR/EC) 60 mg PO DAILY RF: 0 Eliquis 5 mg Tablet 5 mg PO BID RF: 0 alprazolam 0.25 mg Tablet 0.25 mg PO Q12H PRN (Reason: Anxiety) RF: 0 fluticasone propionate [Flonase Allergy Relief] 50 mcg/actuation [place],Suspension 2 spray INTRANASAL DAILY RF: 0 meclizine 12.5 mg Tablet 12.5 mg PO Q8H PRN (Reason: Vertigo) RF: 0 albuterol sulfate [ProAir HFA] 90 mcg/actuation Hfa Aerosol Inhaler 2 puff INHALATION TID RF: 0 cholecalciferol (vitamin D3) [Vitamin D3] 50 mcg (2,000 unit) Tablet 2,000 unit PO DAILY RF: 0 valsartan 80 mg tablet 80 mg PO BID Qty: 0 RF: 0 Discontinued metoprolol succinate 25 mg tablet extended release 24 hr 25 mg PO DAILY RF: 0 Referrals / Follow Up: Buck Joaquin MD [STAFF PHYSICIAN] - Within 2 Weeks (A fib with RVR/Variable rate please call to schedule follow up appointment) Jeffy Rae MD [STAFF PHYSICIAN] - Within 2 Weeks (sleep study please call to schedule appointment) Carmen Brand NP, B[employer]IC[employer] MIXER-C [Primary Care Provider] - (please call to schedule follow up appointment) Disposition Disposition (needs filled in before D/C Order can be placed): Home, self care Charges/Coding Visit Charges OBSV E&M: 74166 Observation care discharge
--- NOTE | 2020-10-15 11:55 | STRESSREP ---
Stress Test Report Date: 10-15-2020 Procedure: Exercise tolerance test/imaging study Indications: Chest pain; shortness of breath/dyspnea; atrial fibrillation Consent: Per the patient Procedure: The patient exercised on a Manuelito protocol for 9 minutes completing Stage III achieving a peak heart rate of 146 bpm (87% predicted maximal heart rate) with a peak blood pressure 190/88 mmHg and a peak MET capacity of 10 METs. The baseline ECG demonstrated sinus bradycardia. The peak exercise ECG demonstrated somatic/motion artifact with no obvious ECG changes. There was a rare PVC and an isolated ventricular couplet during exercise. The functional capacity was considered good. There was no complaint of chest discomfort during exercise or recovery. The examination was discontinued secondary to dyspnea. Impression: 1. Technically adequate (percent predicted maximal heart rate greater than 85%) exercise tolerance test 2. Peak exercise ECG with somatic/motion artifact with no obvious ECG changes 3. There was a rare PVC and an isolated ventricular couplet during exercise 4. Nuclear images pending Myocardial perfusion imaging study: Technique: The patient was injected with 14.1 mCi of technetium 99m Cardiolite and subsequently rest SPECT Cardiolite nuclear imaging was obtained in the horizontal long, vertical long, and short axis views. The patient exercised on a Manuelito protocol for 9 minutes completing Stage III achieving a peak heart rate of 146 bpm (87% predicted maximal heart rate) with a peak blood pressure 190/88 mmHg and a peak MET capacity of 10 METs. The patient was injected with 44.8 mCi of technetium 99m Cardiolite and subsequently stress SPECT Cardiolite nuclear imaging was obtained in the horizontal long, vertical long, and short axis views. A gated Cardiolite study at peak stress was obtained. Interpretation: Rest and stress SPECT Cardiolite nuclear imaging status post realignment, normalization, and attenuation correction, demonstrates the appearance of relative uniform tracer uptake and myocardial perfusion appearing within normal limits. There is end systolic thickening and brightening. The gated Cardiolite study demonstrates myocardial thickening and inward wall motion. The reported LVEF is 60%. Impression: 1. Rest and stress SPECT Cardiolite nuclear imaging demonstrate relative uniform tracer uptake and myocardial perfusion appearing within normal limits. 2. The gated Cardiolite study reports an LVEF of 60%. This note was generated with [employer]BT[employer] software. It may contain incorrect words, spelling, and punctuation that were not noted in checking the note before signing.
--- NOTE | 2020-10-15 12:46 | EKG12_ITS ---
Test Reason : CP Blood Pressure : / mmHG Vent. Rate : 064 BPM Atrial Rate : 064 BPM P-R Int : 190 ms QRS Dur : 096 ms QT Int : 424 ms P-R-T Axes : 044 -18 060 degrees QTc Int : 437 ms Normal sinus rhythm Voltage criteria for left ventricular hypertrophy Abnormal ECG Confirmed by JERRY BRASWELL, ARMANDO ([id number]), editor farm journal BRIAN MATIAS ([id number]) on 10/19/2020 10:30:35 AM Referred By: DAVIN Confirmed By:ARMANDO EDWARDS MD
[2020-10-15] MEDS: Ferrous Sulfate 325 MG Tablet PO (13:12)
--- NOTE | 2020-10-15 14:53 | PCM.CONS.C ---
Assessment & Plan Assessment/Plan (1) Atrial fibrillation: QUALIFIERS: Atrial fibrillation type: paroxysmal Qualified Code(s): I48.0 - Paroxysmal atrial fibrillation PLAN: Advised patient to resume his beta abel. Explained to him that if his heart rate is in the 50s and does not have any symptoms, he can still continue his beta-abel. Continue Eliquis well. He seems to have significant symptoms when he goes into A. fib. If he does not have sleep apnea then he may need referral to EP to see if he would benefit from ablation. (2) Atypical chest pain: PLAN: Stress test is negative for ischemia. His symptoms seem to be related to his A. fib. HPI Consult Data Date of Consult: 10/15/20 HPI Narrative Reason for Consultation: Chest discomfort HPI Narrative: TUAN JOSÉ, is a 54 M who presents with chest discomfort and palpitations. Patient had a Holter that revealed paroxysmal A. fib. Patient had episodes of chest discomfort during the monitoring period which correlated with A. fib. When patient presented this time also he was in A. fib. He then converted to sinus rhythm and does not have any chest pain at this time. Patient is quite symptomatic with the A. fib and notices it as soon as he has it. He has palpitations, chest discomfort and significant fatigue with it. He has an appointment for a sleep study that is coming up in the near future. Patient had a recent 2D echo which was unremarkable. He had a stress test today which is negative for ischemia. Review of systems: All systems reviewed. All else is negative except that in the [facility] Medical History (Updated 10/15/20 @ 14:[address] Zenobia Issa MD) Atrial fibrillation COVID-19 Hypertension Inguinal hernia Home Medications Eliquis 5 mg PO BID 10/14/20 [History Last Taken Unknown] albuterol sulfate [ProAir HFA] 2 puff INHALATION TID 10/14/20 [History Last Taken Unknown] alprazolam 0.25 mg PO Q12H PRN 10/14/20 [History Last Taken Unknown] amlodipine 5 mg PO DAILY 10/14/20 [History Last Taken Unknown] cholecalciferol (vitamin D3) [Vitamin D3] 2,000 unit PO DAILY 10/14/20 [History Last Taken Unknown] cyanocobalamin (vitamin B-12) [Vitamin B-12] 25,800 mcg PO DAILY 10/14/20 [History Last Taken Unknown] duloxetine 60 mg PO DAILY 10/14/20 [History Last Taken Unknown] ferrous sulfate 325 mg PO BID 10/14/20 [History Last Taken Unknown] fluticasone propionate [Flonase Allergy Relief] 2 spray INTRANASAL DAILY 10/14/20 [History Last Taken Unknown] meclizine 12.5 mg PO Q8H PRN 10/14/20 [History Last Taken Unknown] metoprolol succinate 25 mg PO DAILY 10/14/20 [History Last Taken Unknown] omeprazole 40 mg PO DAILY 10/14/20 [History Last Taken Unknown] valsartan 80 mg PO BID #0 tab 10/15/20 [Rx Last Taken Unknown] Allergy/AdvReac Type Severity Reaction Status Date / Time No Known Allergies Allergy Verified 10/14/20 09:45 Family History (Updated 10/14/20 @ 11:[address] Zachary Dougherty MD) Father Heart disease CHF in 50s Sister A-fib Surgical History Previous back surgery Social History Smoking Status: Never smoker Physical Exam Const alert and oriented x3 Orientation / Consciousness: awake HEENT normocephalic Eyes no scleral icterus Chest inspection of chest normal Resp normal respiratory effort Cardio regular rate, regular rhythm, S1 normal heart sound and S2 normal heart sound Extremity no pedal edema Skin no rashes or lesions noted Neuro oriented x3 Psych mental status grossly normal Charges/Coding Visit Charges Inpatient E&M: 41632 Init Hosp L3 Objective Data Vital Signs: Vital Signs Temp Pulse Resp BP Pulse Ox 97.7 F L 67 15 115/76 93 10/15/20 13:08 10/15/20 13:08 10/15/20 13:08 10/15/20 13:08 10/15/20 13:08 Oxygen Delivery Method Room Air Weight: 222 lb 0.088 oz Body Mass Index (BMI) 32.8 Intake & Output: Intake and Output for Last 24 Hours 10/13/20 10/14/20 10/15/20 23:59 23:59 23:59 Intake Total 400 / 640 1600 / 1600 Balance 400 / 640 1600 / 1600 Lab / Micro Data Result Diagrams: 10/14/20 09:45 10/14/20 09:45 Labs: Laboratory Results - last 24 hr 10/14/20 10/15/20 10/15/20 16:29 04:10 04:10 Hemoglobin A1c 5.4 Phosphorus 3.6 Troponin I < 0.015 Triglycerides 188 Cholesterol 194 LDL Cholesterol 129 VLDL Cholesterol 38 HDL Cholesterol 27 L TSH 0.60 Rhythm Strip Rhythm Strip: A-fib Rate: 120 Ectopy: PAC(s) Cardiology Labs/Tests 10/14/20 16:29: Troponin I < 0.015 10/15/20 04:10: Phosphorus 3.6, Triglycerides 188, Cholesterol 194, LDL Cholesterol 129, VLDL Cholesterol 38, HDL Cholesterol 27 L 10/15/20 04:10: Hemoglobin A1c 5.4 Rhythm: EKG: ECHO: Stress Test: Cardiac Cath: PCI: CT Surgery: Holter monitor: EPS: PPM: CXR: Chest CT Scan:
== END 2020-10-15 15:15 | disposition home or self-care (01) ==
LOC: ED 10:42 → PCU 12:38
PROVIDERS: Admitting Provider Internal Medicine; Emergency Provider Emergency Medicine; PCP Nurse Practitioner; Visit Provider Internal Medicine
DX: I20.0 Unstable angina (principal); I48.0 Paroxysmal atrial fibrillation; I10 Essential (primary) hypertension; E78.5 Hyperlipidemia, unspecified; E66.9 Obesity, unspecified; Z79.899 Other long term (current) drug therapy; Z79.01 Long term (current) use of anticoagulants; Z79.51 Long term (current) use of inhaled steroids; Z86.16 Personal history of COVID-19; Z68.34 Body mass index [BMI] 34.0-34.9, adult
CPT/HCPCS: 36415; 71045; 78452; 80048; 80061; 83036; 83735; 83880; 84100; 84443; 84484; 85025; 93005; 93017; 96361; 96374; 99218; 99251; 99285; 99406; A9500; J7030; A4216; G0378; G0463

== ENCOUNTER → 2021-04-01 14:07 | Outpatient (CLI) | payer OTHER, SELFPAY ==
[2021-04-01 15:29] LABS: Free T3 2.8 pg/mL (2.18-3.98); T4 Free Direct 1.05 ng/dL (0.76-1.46); Thyroid Stim Hormone (TSH) 0.29 uIU/mL (0.358-3.74)
[2021-04-03 10:10] LABS: Thyroid Peroxidase AB 18 IU/mL (0-34)
== END ==
PROVIDERS: PCP Nurse Practitioner; Referring Provider Internal Medicine Endocrinology, Diabetes & Metabolism; Visit Provider Internal Medicine Endocrinology, Diabetes & Metabolism
DX: R94.6 Abnormal results of thyroid function studies (principal)
CPT/HCPCS: 36415; 84439; 84443; 84481; 86376

== ENCOUNTER → 2021-04-08 07:43 | Outpatient (CLI) | payer OTHER, SELFPAY ==
--- NOTE | 2021-04-08 07:44 | US_ITS ---
INDICATION: NODULE EXAMINATION: Ultrasound US Thyroid (eg thyroid, parathyroid, parotid) TECHNIQUE: Means scale and color doppler imaging was performed of the thyroid gland. COMPARISON: None. FINDINGS: RIGHT THYROID LOBE: 4.6 x 2.2 x 1.7 cm. Homogeneous echotexture with normal vascularity. [No thyroid nodules are present. LEFT THYROID LOBE: 5.2 x 1.8 x 1.6 cm. Homogeneous echotexture with normal vascularity. [No thyroid nodules are present. ISTHMUS: 4 mm. No thyroid nodules are present. US/Thyroid IMPRESSION: Negative thyroid ultrasound examination. Electronically Signed: Juan Stanford MD at 10:42 EST Tel , Service support ,
== END ==
PROVIDERS: PCP Nurse Practitioner; Referring Provider Internal Medicine Endocrinology, Diabetes & Metabolism; Visit Provider Internal Medicine Endocrinology, Diabetes & Metabolism
DX: E04.9 Nontoxic goiter, unspecified (principal)
CPT/HCPCS: 76536

== ENCOUNTER → 2021-12-14 | Outpatient (CLI) | payer OTHER, SELFPAY ==
[2021-12-14 10:08] LABS: Absolute Lymphocyte Count 4.54 X10^3/uL (0.83-4.51); Absolute Neutrophil Count 3.9 X10^3/uL (2.0-7.7); Basophil# 0.05 X10^3/uL; Basophil% 0.5 % (0-1); Eosinophil# 0.26 X10^3/uL; Eosinophils% 2.8 % (0-5); Hematocrit 32.3 % (40-54); Hemoglobin 10.8 g/dL (13.0-16.5); Lymphocyte # 4.54 X10^3/ul (0.83-4.51); Lymphocyte % 48.2 % (19-41); Mean Corp Hgb Conc 33.4 g/dL (32-36); Mean Corpuscular Hgb 31.7 pg (27.0-32.0); Mean Corpuscular Volume 94.7 fL (80-94); Mean Platelet Vol. 10.8 fl (6.2-12.0); Monocyte# 0.61 X10^3/uL; Monocyte% 6.5 % (0-10); NRBC Flagged by Analyzer 0 % (0-5); Neutrophil # 3.93 X10^3/uL (2.7-7.7); Neutrophil % 41.8 % (47-70); POSITIVE MORPHOLOGY YES; Platelet Count 221 K/mm3 (150-450); RBC Distribution Width CV 12.3 % (11.6-14.6); RBC Distribution Width SD 42.6 fl (35.1-43.9); Red Blood Count 3.41 M/mm3 (4.6-6.2); White Blood Count 9.4 K/mm3 (4.4-11.0)
[2021-12-14 10:12] LABS: Differential Indicated SCAN CRITERIA MET
[2021-12-14 10:47] LABS: AST(SGOT) 17 U/L (15-37); Alanine Aminotransfer ALT/SGPT 33 U/L (16-61); Albumin, Serum 3.4 g/dL (3.2-5.0); Alkaline Phosphatase 104 U/L (45-117); Anion Gap 2 (5-15); BUN 15 mg/dL (7-18); Calcium,Total 8.7 mg/dL (8.5-10.1); Chloride 112 mmol/L (98-107); Cholesterol 122 mg/dL (200); Creatinine, Serum 0.94 mg/dL (0.70-1.30); EST Glomerular Filtration Rate 89 mL/min (>60); Est Glom Filt Rate - Afr Amer 107 mL/min (>60); Globulin 3.4 g/dL (2.2-4.2); Glucose 107 mg/dL (74-106); High Density Lipoprotein 34 mg/dL; Iron 25 ug/dL (65-175); PSA,Total - Annual Screen 1.99 ng/mL (0.00-4.00); Potassium 4.6 mmol/L (3.5-5.1); Protein, Total 6.8 g/dL (6.4-8.2); Sodium Level 141 mmol/L (136-145); Thyroid Stim Hormone (TSH) 0.35 uIU/mL (0.358-3.74); Triglycerides 73 mg/dL; Very Low Density Lipoprotein 15 mg/dL (5-40)
[2021-12-14 10:49] LABS: Atypical Lymphocyte 1+ %
== END | disposition home or self-care (01) ==
LOC: LAB 09:52
PROVIDERS: PCP Nurse Practitioner Family; Referring Provider Nurse Practitioner Family; Visit Provider Nurse Practitioner Family
DX: I10 Essential (primary) hypertension (principal); E55.9 Vitamin D deficiency, unspecified; R79.89 Other specified abnormal findings of blood chemistry; D64.9 Anemia, unspecified; Z12.5 Encounter for screening for malignant neoplasm of prostate
CPT/HCPCS: 36415; 80053; 80061; 82306; 83540; 84153; 84443; 85025; G0103

== ENCOUNTER → 2021-12-29 | Outpatient (CLI) | payer OTHER, SELFPAY ==
[2021-12-29 09:59] LABS: Absolute Lymphocyte Count 4.82 X10^3/uL (0.83-4.51); Absolute Neutrophil Count 4.3 X10^3/uL (2.0-7.7); Basophil# 0.05 X10^3/uL; Basophil% 0.5 % (0-1); Eosinophil# 0.22 X10^3/uL; Eosinophils% 2.2 % (0-5); Hematocrit 31.9 % (40-54); Hemoglobin 9.9 g/dL (13.0-16.5); Lymphocyte # 4.82 X10^3/ul (0.83-4.51); Lymphocyte % 47.6 % (19-41); Mean Corpuscular Hgb 28.7 pg (27.0-32.0); Mean Corpuscular Volume 92.5 fL (80-94); Mean Platelet Vol. 11.6 fl (6.2-12.0); Monocyte# 0.71 X10^3/uL; NRBC Flagged by Analyzer 0 % (0-5); Neutrophil % 42.5 % (47-70); POSITIVE MORPHOLOGY YES; Platelet Count 228 K/mm3 (150-450); RBC Distribution Width CV 12.5 % (11.6-14.6); RBC Distribution Width SD 42.5 fl (35.1-43.9); RET-HE 23.6 pg (30-35); Red Blood Count 3.45 M/mm3 (4.6-6.2); White Blood Count 10.1 K/mm3 (4.4-11.0)
[2021-12-29 10:03] LABS: Differential Indicated SCAN CRITERIA MET
[2021-12-29 10:27] LABS: Vitamin B12 1746 pg/mL (211-911)
[2021-12-29 10:44] LABS: LDH 161 U/L (87-241)
[2021-12-29 10:56] LABS: Reactive Lymphocyte 1+
== END | disposition home or self-care (01) ==
LOC: LAB 08:34
PROVIDERS: PCP Nurse Practitioner Family; Referring Provider Nurse Practitioner Family; Visit Provider Nurse Practitioner Family
DX: D64.9 Anemia, unspecified (principal)
CPT/HCPCS: 36415; 82607; 82746; 83615; 85025; 85045

== ENCOUNTER 2022-04-11 19:59 | Observation (INO) | payer OTHER, SELFPAY ==
[2022-04-11 20:00] VITALS: BP 88/57; PULSE 112; RESP 24; TEMP 36.7; O2SAT 98; BMI 34.0
[2022-04-11 20:47] VITALS: BP 88/57; PULSE 118; RESP 24; TEMP 36.7; O2SAT 98
[2022-04-11 20:57] LABS: Absolute Lymphocyte Count 1.26 X10^3/uL (0.83-4.51); Absolute Neutrophil Count 10.7 X10^3/uL (2.0-7.7); Basophil# 0.01 X10^3/uL; Basophil% 0.1 % (0-1); Hematocrit 42.9 % (40-54); Hemoglobin 13.8 g/dL (13.0-16.5); Lymphocyte # 1.26 X10^3/ul (0.83-4.51); Lymphocyte % 10.2 % (19-41); Mean Corp Hgb Conc 32.2 g/dL (32-36); Mean Corpuscular Hgb 29.6 pg (27.0-32.0); Mean Corpuscular Volume 91.9 fL (80-94); Mean Platelet Vol. 11.3 fl (6.2-12.0); Monocyte# 0.36 X10^3/uL; Monocyte% 2.9 % (0-10); NRBC Flagged by Analyzer 0 % (0-5); Neutrophil # 10.68 X10^3/uL (2.7-7.7); Neutrophil % 86.5 % (47-70); POSITIVE COUNT YES; Platelet Count 78 K/mm3 (150-450); RBC Distribution Width CV 18.8 % (11.6-14.6); RBC Distribution Width SD 61.5 fl (35.1-43.9); Red Blood Count 4.67 M/mm3 (4.6-6.2); White Blood Count 12.4 K/mm3 (4.4-11.0)
--- NOTE | 2022-04-11 21:00 | RAD_ITS ---
STUDY: X-RAY CHEST REASON FOR EXAM: Male, 56 years old. Neutropenic Fever TECHNIQUE: PA and lateral views of the chest. COMPARISON: January 21, 2021 FINDINGS: Port on the left extends to the superior vena cava. There are monitoring devices. The lungs are clear and expanded. There is no demonstrated pleural abnormality. Normal size heart. Normal mediastinum and mercedes. Normal visualized pulmonary arteries. Normal visualized aortic arch and descending thoracic aorta. There are diffuse degenerative changes of the visualized thoracic spine. There is an increased kyphosis of the thoracic spine. Normal visualized ribs, clavicles, and shoulders. There is no demonstrated abnormality of the visualized soft tissue structures of the upper abdomen. RAD/Chest PA and Lateral IMPRESSION: Degenerative changes, as described above. No demonstrated acute cardiopulmonary process. Electronically Signed: Rafael Stovall MD at 22:14 [facility] ,
[2022-04-11] MEDS: 0.9% Normal Saline 1,000 ML 1000 ML IV (21:06)
[2022-04-11 21:13] LABS: AST(SGOT) 79 U/L (15-37); Alanine Aminotransfer ALT/SGPT 126 U/L (16-61); Albumin, Serum 3.7 g/dL (3.2-5.0); Alkaline Phosphatase 155 U/L (45-117); Anion Gap 8 (5-15); BUN 17 mg/dL (7-18); BUN/Creat Ratio 13.2 RATIO (10-20); Calcium,Total 9.3 mg/dL (8.5-10.1); Chloride 104 mmol/L (98-107); Creatinine, Serum 1.29 mg/dL (0.70-1.30); EST Glomerular Filtration Rate 61 mL/min (>60); Est Glom Filt Rate - Afr Amer 74 mL/min (>60); Estimated Creatinine Clearance 61.86 ml/min; Globulin 3.6 g/dL (2.2-4.2); Glucose 162 mg/dL (74-106); Potassium 4.3 mmol/L (3.5-5.1); Protein, Total 7.3 g/dL (6.4-8.2); Sodium Level 137 mmol/L (136-145)
[2022-04-11 21:15] VITALS: BP 104/79; PULSE 114; RESP 16; O2SAT 96
[2022-04-11 21:16] LABS: Differential Indicated SCAN CRITERIA MET
[2022-04-11 21:20] LABS: Lactic Acid 2.4 mmol/L (0.4-1.9)
[2022-04-11 21:29] LABS: International Normalized Ratio 1.2; Partial Thromboplast Time 23.7 Seconds (24.1-36.2); Prothrombin Time (Protime)PT. 14.5 SECONDS (11.7-14.9)
[2022-04-11 21:57] LABS: Differential Comment SCANNED
[2022-04-11 22:18] VITALS: BP 115/70; PULSE 112; RESP 25; TEMP 36.8; O2SAT 94
--- NOTE | 2022-04-11 22:30 | EDS_ITS ---
HPI History of Present Illness Chief Complaint: Fever Informant: patient Narrative Narrative: Patient is a 56-year-old male with history of colon cancer status post resection and now currently on cycle 5 of chemotherapy. He is presenting after having a fever at home of 1-1.9 orally and having an episode where he felt lightheaded, sweaty and like he might pass out. He also had episode of nausea and vomiting. He called his oncologist, Dr. Rousseau, who recommend he come to the ER for further evaluation. Patient is never had this reaction before. He does currently have a port which is running 41-hour continuous infusion of his chemotherapy. Denies any other GI or symptoms. Denies any chest pain or difficulty breathing. Notes he feels cold. No other complaints at this time. [facility] Medical History Abnormal results of thyroid function studies Atrial fibrillation Colon cancer COVID-19 Essential hypertension HLD (hyperlipidemia) Inguinal hernia KARIN on CPAP PAF (paroxysmal atrial fibrillation) Home Medications amlodipine 5 mg tablet 5 mg PO DAILY 10/14/20 [History Last Taken Unknown] cholecalciferol (vitamin D3) 50 mcg (2,000 unit) tablet (Vitamin D3) 2,000 unit PO DAILY 10/14/20 [History Last Taken Unknown] duloxetine 60 mg capsule,delayed release 60 mg PO DAILY 10/14/20 [History Last Taken Unknown] meclizine 12.5 mg tablet 12.5 mg PO Q8H PRN Vertigo 10/14/20 [History Last Taken Unknown] omeprazole 40 mg capsule,delayed release 40 mg PO DAILY 10/14/20 [History Last Taken Unknown] valsartan 80 mg tablet 80 mg PO BID #0 tabs 10/15/20 [Rx Last Taken Unknown] apixaban 5 mg tablet 5 mg PO BID 12/08/21 [History Last Taken Unknown] metoprolol tartrate 50 mg tablet 50 mg PO BID 02/16/22 [History Last Taken Unknown] atorvastatin 40 mg tablet 40 mg PO QHS #90 tabs 02/24/22 [Rx Last Taken Unknown] ferrous gluconate 324 mg (38 mg iron) tablet mg 04/11/22 [History Last Taken Unknown] potassium chloride 20 mEq tablet,extended release(part/cryst) (Klor-Con M) meq PO 04/11/22 [History Last Taken Unknown] promethazine 25 mg tablet 25 mg PO PRN PRN Nausea 04/11/22 [History Last Taken Unknown] Allergy/AdvReac Type Severity Reaction Status Date / Time No Known Allergies Allergy Verified 04/11/22 19:59 Family History Father Heart disease CHF in 50s Sister A-fib Surgical History History of radiofrequency ablation procedure for cardiac arrhythmia (~02/17/21) Previous back surgery Social History Smoking Status: Never smoker ROS ROS ED Constitutional Constitutional ED: Reports chills, fever(s), sweats and other Details: Near syncope Eyes Eyes: Denies blurry vision ENT ENT ED: Reports rhinorrhea; Denies sore throat Cardiovascular Cardiovascular: Denies chest pain or palpitations Respiratory/Chest Respiratory/Chest: Denies cough or dyspnea Gastrointestinal Gastrointestinal: Reports nausea and vomiting; Denies abdominal pain, constipation or diarrhea Genitourinary Genitourinary ED: Denies dysuria or hematuria Musculoskeletal Musculoskeletal: Denies arthralgias or myalgias Integumentary Denies rash Neurologic Neurologic: Reports paresthesias; Denies headache(s) or weakness Psychiatric Psychiatric: Denies anxiety Endocrine Endocrinology: Reports cold intolerance Hematologic/Lymphatic Hematologic/Lymphatic: Denies easy bleeding or easy bruising EXAM Physical Exam Const Vital Signs: 04/11/22 20:00 04/11/22 20:45 04/11/22 20:47 Temperature 98.0 F 98.0 F Temperature Source Oral Oral Pulse Rate 112 H 118 H Respiratory Rate 24 H 24 H Respiratory Pattern Blood Pressure 88/57 L 88/57 L Blood Pressure Mean 67 67 Pulse Ox 98 98 Oxygen Delivery Method Room Air Room Air Room Air 04/11/22 21:14 04/11/22 21:15 04/11/22 22:18 Temperature 98.2 F Temperature Source Oral Pulse Rate 114 H 112 H Respiratory Rate 16 25 H Respiratory Pattern Normal Blood Pressure 104/79 115/70 Blood Pressure Mean 87 85 Pulse Ox 96 94 Oxygen Delivery Method Room Air Room Air Positive well nourished and well developed General Appearance ED: well developed, NAD and pallor HEENT Reports dry mucous membranes Mouth ED: Yes dry mucous membranes Mouth: dry mucous membranes Eyes PERRL and EOMs intact bilaterally Neck supple and no JVD Neck Narrative: No meningeal signs Chest Wall inspection of chest normal and palpation of chest normal Chest Narrative: Med port and left chest wall, no surrounding tenderness, fluctuance or erythema Resp normal respiratory effort and clear to auscultation bilaterally Cardio regular rhythm and no murmurs Rate: tachycardic GI normal to inspection, nondistended, normoactive bowel sounds Extremity normal to inspection Extremity Narrative: Slightly mottled fingers, patient states this is chronic for him when it is cold out General Extremety ED: Negative for edema or tenderness General Extremity: Negative for edema Neuro oriented x3 Neuro Narrative: No focal deficits appreciated Motor Exam: general weakness Psych mental status grossly normal Skin no rashes or lesions noted General Skin Exam: pallor MDM MDM MDM Narrative Medical decision making narrative: Patient is evaluated for it sounds like a near syncopal episode and fever at home. He is high risk given that he is on chemotherapy. Patient is tachycardic And mildly hypotensive. He is given IV fluids. He has a mild leukocytosis of 12.4 and a lactic acidosis of 2.4. He does have mild transaminitis but he denies any abdominal pain and his abdomen is soft on exam. Work-up otherwise normal. Chest x-ray interpreted by myself as well as radiology does not show any acute process. Case discussed with Dr. Rousseau, oncology, who recommended observation and I covered him with vancomycin and Zosyn. Patient is agreeable this plan of care. Blood pressure is improved with fluid resuscitation however he remains tachycardic. Patient is on Eliquis and has no anemia. Low suspicion for pulmonary emboli. Lab Data Labs: Laboratory Results - last 24 hr 04/11/22 04/11/22 04/11/22 20:30 20:30 20:30 WBC 12.4 H RBC 4.67 Hgb 13.8 Hct 42.9 MCV 91.9 MCH 29.6 MCHC 32.2 RDW Std Deviation 61.5 H RDW Coeff of Volodymyr 18.8 H Plt Count 78 L MPV 11.3 Immature Gran % (Auto) 0.300 Neut % (Auto) 86.5 H Lymph % (Auto) 10.2 L Leslie % (Auto) 2.9 Eos % (Auto) 0.0 Baso % (Auto) 0.1 Absolute Neuts (auto) 10.7 H Absolute Lymphs (auto) 1.26 Nucleated RBC % 0 Differential Comment SCANNED PT 14.5 INR 1.2 APTT 23.7 L Sodium 137 Potassium 4.3 Chloride 104 Carbon Dioxide 25.0 Anion Gap 8 BUN 17 Creatinine 1.29 Estim Creat Clear Calc 61.86 Est GFR (MDRD) Af Amer 74 Est GFR (MDRD) Non-Af 61 BUN/Creatinine Ratio 13.2 Glucose 162 H Lactic Acid Calcium 9.3 Total Bilirubin 0.60 AST 79 H ALT 126 H Alkaline Phosphatase 155 H Total Protein 7.3 Albumin 3.7 Globulin 3.6 Albumin/Globulin Ratio 1.0 04/11/22 20:30 WBC RBC Hgb Hct MCV MCH MCHC RDW Std Deviation RDW Coeff of Volodymyr Plt Count MPV Immature Gran % (Auto) Neut % (Auto) Lymph % (Auto) Leslie % (Auto) Eos % (Auto) Baso % (Auto) Absolute Neuts (auto) Absolute Lymphs (auto) Nucleated RBC % Differential Comment PT INR APTT Sodium Potassium Chloride Carbon Dioxide Anion Gap BUN Creatinine Estim Creat Clear Calc Est GFR (MDRD) Af Amer Est GFR (MDRD) Non-Af BUN/Creatinine Ratio Glucose Lactic Acid 2.4 H* Calcium Total Bilirubin AST ALT Alkaline Phosphatase Total Protein Albumin Globulin Albumin/Globulin Ratio Radiography Diagnostic Testing: Clinical Impression(s) from Imaging Studies Chest X-Ray 04/11/22 21:00 IMPRESSION: Degenerative changes, as described above. No demonstrated acute cardiopulmonary process. Electronically Signed: Rafael Stovall MD at 22:14 EST , Discharge Plan Triage Chief Complaint: Fever ED Provider: Lore Sandoval Dx/Rx/DC Orders Clinical Impression: Fever, unknown origin, Leukocytosis, Elevated lactic acid level, Colon cancer Prescriptions: No Action apixaban 5 mg tablet 5 mg PO BID amlodipine 5 mg tablet 5 mg PO DAILY Label Comments: TAKE 1 TABLET BY MOUTH EVERY DAY omeprazole 40 mg capsule,delayed release(DR/EC) 40 mg PO DAILY duloxetine 60 mg capsule,delayed release(DR/EC) 60 mg PO DAILY Label Comments: TAKE 1 CAPSULE EVERY DAY meclizine 12.5 mg Tablet 12.5 mg PO Q8H PRN (Reason: Vertigo) cholecalciferol (vitamin D3) [Vitamin D3] 50 mcg (2,000 unit) Tablet 2,000 unit PO DAILY valsartan 80 mg tablet 80 mg PO BID Qty: 0 0RF Rx Instructions: Hold for SBP less than 120 mmHg potassium chloride [Klor-Con M20] 20 mEq tablet,ER particles/crystals PO Label Comments: TAKE 1 TABLET BY MOUTH EVERY DAY promethazine 25 mg tablet 25 mg PO PRN PRN (Reason: Nausea) Label Comments: PLEASE SEE ATTACHED FOR DETAILED DIRECTIONS ferrous gluconate 324 mg (38 mg iron) tablet Label Comments: TAKE 1 TABLET BY MOUTH EVERY OTHER DAY metoprolol tartrate 50 mg tablet 50 mg PO BID atorvastatin 40 mg tablet 40 mg PO QHS Qty: 90 3RF Primary Care Provider: Carey Rivero Referrals: Carey Rivero, [facility] [Primary Care Provider] - Disposition Disposition: Acute Care Hospital [facility]
--- NOTE | 2022-04-11 23:21 | HP.PCM.HOS_ITS ---
HPI - General General Date of Admission: 04/11/22 Date of Service: 04/11/22 Chief Complaint: Fever and chills HPI Narrative TUAN JOSÉ, is a 56 M with a significant history of colon cancer status post colectomy and on chemotherapy presents emergency department with fever and chills. Reportedly his temperature at home was 100.9F. He called his oncologist Dr. Rousseau's office and was instructed come to the emergency department. Associated with his symptoms is nausea; anorexia and diaphoresis. Of note his symptoms started about 4 hours after he has completed the first portion of his fifth cycle of chemotherapy. He continues to have a continuous infusion as part of the cycle. The continuous infusion will end in about a day and a half. In the past he has not had any reactions from his chemotherapy. [facility] Medical History Abnormal results of thyroid function studies Atrial fibrillation Colon cancer COVID-19 Electrical isolation of left atrial appendage after cardiac ablation procedure for atrial fibrillation Essential hypertension HLD (hyperlipidemia) Inguinal hernia KARIN on CPAP PAF (paroxysmal atrial fibrillation) Home Medications amlodipine 5 mg tablet 5 mg PO DAILY 10/14/20 [History Last Taken Unknown] cholecalciferol (vitamin D3) 50 mcg (2,000 unit) tablet (Vitamin D3) 2,000 unit PO DAILY 10/14/20 [History Last Taken Unknown] duloxetine 60 mg capsule,delayed release 60 mg PO DAILY 10/14/20 [History Last Taken Unknown] meclizine 12.5 mg tablet 12.5 mg PO Q8H PRN Vertigo 10/14/20 [History Last Taken Unknown] omeprazole 40 mg capsule,delayed release 40 mg PO DAILY 10/14/20 [History Last Taken Unknown] valsartan 80 mg tablet 80 mg PO BID #0 tabs 10/15/20 [Rx Last Taken Unknown] apixaban 5 mg tablet 5 mg PO BID 12/08/21 [History Last Taken Unknown] metoprolol tartrate 50 mg tablet 50 mg PO BID 02/16/22 [History Last Taken Unknown] atorvastatin 40 mg tablet 40 mg PO QHS #90 tabs 02/24/22 [Rx Last Taken Unknown] ferrous gluconate 324 mg (38 mg iron) tablet 324 mg PO DAILY 04/11/22 [History Last Taken Unknown] potassium chloride 20 mEq tablet,extended release(part/cryst) (Klor-Con M) 20 meq PO DAILY 04/11/22 [History Last Taken Unknown] promethazine 25 mg tablet 25 mg PO PRN PRN Nausea 04/11/22 [History Last Taken Unknown] Allergy/AdvReac Type Severity Reaction Status Date / Time No Known Allergies Allergy Verified 04/11/22 19:59 Family History Father Heart disease CHF in 50s Sister A-fib Surgical History History of radiofrequency ablation procedure for cardiac arrhythmia (~02/17/21) Previous back surgery Social History Smoking Status: Never smoker ROS ROS Narrative Pertinent positives and pertinent negatives as noted in HPI. All other systems were reviewed and are negative Vital Signs Vital Signs Vital Signs: 04/11/22 20:00 04/11/22 20:45 04/11/22 20:47 Temperature 98.0 F 98.0 F Temperature Source Oral Oral Pulse Rate 112 H 118 H Respiratory Rate 24 H 24 H Respiratory Pattern Blood Pressure 88/57 L 88/57 L Blood Pressure Mean 67 67 Pulse Ox 98 98 Oxygen Delivery Method Room Air Room Air Room Air 04/11/22 21:14 04/11/22 21:15 04/11/22 22:18 Temperature 98.2 F Temperature Source Oral Pulse Rate 114 H 112 H Respiratory Rate 16 25 H Respiratory Pattern Normal Blood Pressure 104/79 115/70 Blood Pressure Mean 87 85 Pulse Ox 96 94 Oxygen Delivery Method Room Air Room Air Weight Weight: 101.605 kg Body Mass Index (BMI) 34.0 Physical Exam Narrative Physical exam: General: Well-nourished, well-developed. Head: Normocephalic, atraumatic, no tenderness Eyes: Vision is grossly intact. EOMI ENT, no trauma, moist mucous membranes, no rhinorrhea Neck: Nontender, full range of motion. CVS: Regular rate and rhythm. S1-S2 present. No murmur, gallop or rub. Respiratory: clear to auscultation bilaterally, chest wall nontender, no wheezing Abdomen: Soft, nontender, nondistended, normal bowel sounds, no masses : Deferred Back: Nontender, no CVA tenderness. Extremities: Nontender full range of motion, no trauma Skin: Normal color, no trauma, abrasions Neuro: Alert, oriented, cranial nerves II through XII grossly intact. Psychiatry: Normal mood. Normal affect. Not depressed. Not anxious. Results Lab / Micro Data Result Diagrams: 04/11/22 20:30 04/11/22 20:30 Labs: Laboratory Results - last 24 hr 04/11/22 20:30: WBC 12.4 H, RBC 4.67, Hgb 13.8, Hct 42.9, MCV 91.9, MCH 29.6, MCHC 32.2, RDW Std Deviation 61.5 H, RDW Coeff of Volodymyr 18.8 H, Plt Count 78 L, MPV 11.3, Immature Gran % (Auto) 0.300, Neut % (Auto) 86.5 H, Lymph % (Auto) 10.2 L, Burnett % (Auto) 2.9, Eos % (Auto) 0.0, Baso % (Auto) 0.1, Absolute Neuts (auto) 10.7 H, Absolute Lymphs (auto) 1.26, Nucleated RBC % 0, Differential Comment SCANNED 04/11/22 20:30: PT 14.5, INR 1.2, APTT 23.7 L 04/11/22 20:30: Sodium 137, Potassium 4.3, Chloride 104, Carbon Dioxide 25.0, Anion Gap 8, BUN 17, Creatinine 1.29, Estim Creat Clear Calc 61.86, Est GFR (MDRD) Af Amer 74, Est GFR (MDRD) Non-Af 61, BUN/Creatinine Ratio 13.2, Glucose 162 H, Calcium 9.3, Total Bilirubin 0.60, AST 79 H, ALT 126 H, Alkaline Phosphatase 155 H, Total Protein 7.3, Albumin 3.7, Globulin 3.6, Albumin/Globulin Ratio 1.0 04/11/22 20:30: Lactic Acid 2.4 H* Micro: Microbiology 04/11/22 21:30 Nasal Secretion SARS-CoV-2 & FLU Antigen (Rapid) - Final Radiology Impression Chest X-Ray 04/11/22 21:00 IMPRESSION: Degenerative changes, as described above. No demonstrated acute cardiopulmonary process. Electronically Signed: Rafael Stovall MD at 22:14 EST , Assessment & Plan Assessment/Plan (1) Sepsis: (2) Colon cancer: PLAN: Plan Sepsis The patient presented with sepsis without clear etiology; with acute sepsis related organ dysfunction as evidenced by lactic acidosis; and hypotension with initial blood pressure 88/57. Initial lactic acid of 2.4; trend. SIRS criteria: Respiratory rate more than 20 Heart rate more than 90 WBC more than 12,000 (white count is 12,400, no bands. With neutrophilia and lymphopenia). Trend CBC Urinalysis unremarkable. CXR was visualized and independently interpreted. No acute cardiopulmonary process seen. I agree with radiologist interpretation Differential diagnoses include viral syndrome (less likely as there is leukocytosis); adverse effect of drug or other. Started on vancomycin and Zosyn at the emergency department and continued. Colon cancer Stable History of atrial fibrillation Patient with tachycardia and hypotension. Hypotension responded to fluids. We will hold metoprolol for now. Eliquis continued. Placed on telemetry. Prophylaxis: Home Eliquis for A. fib continued. Charges/Coding Visit Charges Inpatient E&M: 65244 Init Hosp L3
[2022-04-11 23:53] VITALS: BP 99/63; PULSE 111; RESP 25; O2SAT 95
[2022-04-11 23:54] VITALS: BP 99/63; PULSE 110; RESP 27; TEMP 37.1; O2SAT 95
[2022-04-12] VITALS (22 sets, daily range): BP systolic 91–113; BP diastolic 52–71; PULSE 69–111; RESP 16–23; TEMP 36.5–38.2; O2SAT 93–100; BMI 34.4
[2022-04-12 00:48] LABS: Reflex Lactate? Y
[2022-04-12 00:55] LABS: Bacteria 0 SEEN /hpf (None Seen); Mucous, Urine 0 SEEN /hpf (<or=2+); Red Blood Cells-Urine 0 SEEN /hpf (0-5); Squamous Epithelial Cells - UA 0 SEEN /hpf (0-5); White Blood Cells 0 SEEN /hpf (0-5)
[2022-04-12 00:59] LABS: Color, Urine Yellow (Yellow); Glucose, Dipstick Normal (Normal); Ketone-Dipstick Negative (Negative); Leukocyte Esterase-Dipstick Negative /ul (Negative); Nitrite-Dipstick Negative (Negative); Occult Blood-Urine Negative /ul (Negative); Protein-Dipstick 15 mg/dl (Negative); Specific Gravity, Urine 1.015 (1.002-1.030); Urine Bilirubin Dipstick Negative (Negative); Urine Clarity Clear (Clear); Urine Urobilinogen Normal (Normal)
--- NOTE | 2022-04-12 01:07 | PCM.RX.CS ---
Consult Pharmacy has been consulted to manage selected antiobiotic: Vancomycin Type of Consult: New start Prior Doses of Antibiotics Received/Current Regimen: Medications Vancomycin HCl 1,250 mg/ (Sodium Chloride) 275 mls @ 167 mls/hr IV Q12H MEAGAN Discontinued Medications Vancomycin HCl 1,500 mg/ (Sodium Chloride) 530 mls @ 250 mls/hr IV X1 ONE Stop: 04/12/22 00:27 Last Admin: 04/11/22 23:18 Dose: 250 mls/hr Labs: Sodium 137 mmol/L (136-145) 04/11/22 20:30 Potassium 4.3 mmol/L (3.5-5.1) 04/11/22 20:30 Chloride 104 mmol/L (98-107) 04/11/22 20:30 Carbon Dioxide 25.0 mmol/L (21.0-32.0) 04/11/22 20:30 Anion Gap 8 (5-15) 04/11/22 20:30 BUN 17 mg/dL (7-18) 04/11/22 20:30 Creatinine 1.29 mg/dL (0.70-1.30) 04/11/22 20:30 Est GFR (MDRD) Af Amer 74 mL/min (>60) 04/11/22 20:30 Est GFR (MDRD) Non-Af 61 mL/min (>60) 04/11/22 20:30 BUN/Creatinine Ratio 13.2 RATIO (10-20) 04/11/22 20:30 Glucose 162 mg/dL (74-106) H 04/11/22 20:30 Microbiology: Microbiology 04/11/22 21:30 Nasal Secretion SARS-CoV-2 & FLU Antigen (Rapid) - Final Weight used for dosin.7 kg Estimated Creatinine Clearance: 62 Goal Trough: 15-20 mcg/mL Pharmacy Plan for Drug Dosing: Pharmacy Service will continue to monitor and adjust dosing as required. Follow-Up Labs: Trough Vancomycin Labs to be done on [date and time ordered]: 04/13/22 @1100
[2022-04-12] MEDS: 0.9% Normal Saline 1,000 ML 100 ML IV ×2 (01:34→15:40)
[2022-04-12 02:03] LABS: Lactic Acid 2.4 mmol/L (0.4-1.9)
[2022-04-12] MEDS: 0.9% Normal Saline 1,000 ML 999 ML IV (02:11)
[2022-04-12] MEDS: 0.9% Saline Lock 10 ML Syringe IV (05:04)
[2022-04-12 05:14] LABS: Absolute Neutrophil Count 9.8 X10^3/uL (2.0-7.7); Basophil# 0.02 X10^3/uL; Basophil% 0.2 % (0-1); Hematocrit 36.9 % (40-54); Hemoglobin 12.1 g/dL (13.0-16.5); Lymphocyte % 7.2 % (19-41); Mean Corp Hgb Conc 32.8 g/dL (32-36); Mean Corpuscular Volume 91.3 fL (80-94); Mean Platelet Vol. 10.9 fl (6.2-12.0); Monocyte# 0.46 X10^3/uL; Monocyte% 4.1 % (0-10); NRBC Flagged by Analyzer 0 % (0-5); Neutrophil # 9.79 X10^3/uL (2.7-7.7); Neutrophil % 88.1 % (47-70); POSITIVE COUNT YES; Platelet Count 68 K/mm3 (150-450); RBC Distribution Width CV 19.4 % (11.6-14.6); Red Blood Count 4.04 M/mm3 (4.6-6.2); White Blood Count 11.1 K/mm3 (4.4-11.0)
[2022-04-12 05:33] LABS: Anion Gap 7 (5-15); BUN 19 mg/dL (7-18); BUN/Creat Ratio 15.6 RATIO (10-20); Calcium,Total 8.4 mg/dL (8.5-10.1); Chloride 109 mmol/L (98-107); Creatinine, Serum 1.22 mg/dL (0.70-1.30); EST Glomerular Filtration Rate 65 mL/min (>60); Est Glom Filt Rate - Afr Amer 79 mL/min (>60); Estimated Creatinine Clearance 65.41 ml/min; Glucose 146 mg/dL (74-106); Potassium 4.2 mmol/L (3.5-5.1); Sodium Level 140 mmol/L (136-145)
--- NOTE | 2022-04-12 10:14 | EX.PCM.CONCC ---
Assessment & Plan Assessment/Plan (1) Fever, unknown origin: PLAN: Plan RECOMMENDATIONS: 1. Supplemental IV fluid hydration and encourage p.o. intake. 2. Antiemetics as needed. 3. Empiric antimicrobials, pending finalized culture results. 4. Encourage incentive spirometer use and mobilize patient as tolerated. 5. The patient is medically stable for transfer out of the intensive care unit. 6. Given the patient's lack of further ICU or pulmonary needs, will sign off. Please call with any additional questions. IMPRESSIONS: 1. Fevers and nausea Although there was some initial concern for sepsis at the time of his presentation to the hospital, the patient's hemodynamic status has been relatively stable and I suspect his lactic acidemia was likely secondary to his underlying malignancy and recent chemotherapy administration, as opposed to occult end-organ damage. Given that cultures are still currently pending, antibiotics will be continued. No definitive source of infection has yet to be identified. Plan to continue current supportive measures. 2. History of colon CA The patient is currently receiving chemotherapy on an outpatient basis. I do suspect that his recent administration is what likely precipitated his symptoms leading to his hospitalization. Recommend follow-up with oncology after discharge. 3. History of atrial fibrillation Continue systemic anticoagulation per baseline regimen. This note was generated with [employer] dictation software. It may contain incorrect words, spelling, and punctuation that were not noted in checking the note before signing. HPI Consult Data Date of Consult: 04/13/22 HPI Narrative Reason for Consultation: Sepsis HPI Narrative: The patient is a 56-year-old male, with a history as outlined below, who presented to the emergency department on April 11 at the prompting of his oncologist over concerns for a fever and nausea. The patient has a history of colon cancer status postresection and is currently undergoing chemotherapy treatment. He last received his chemotherapy yesterday morning and then went on to develop a fever of 102 degrees and some nausea. He denied any anupama emesis. He currently denies any abdominal pain or shortness of breath. The patient's medical history is also significant for atrial fibrillation with RVR, for which he is maintained on Eliquis on an outpatient basis. On presentation to the emergency department, the patient was noted to be afebrile with borderline hemodynamics. He was also documented to be tachycardic and tachypneic, but was maintaining appropriate oxygen saturations on room air. Laboratory evaluation revealed a white blood cell count of 12,000. The patient was thrombocytopenic with a platelet count of 70,000. Chemistry profile was unremarkable. Lactate was elevated at 2.4. AST and ALT were elevated at 79 and 126, respectively. Total bili was within normal limits. Urine analysis was unremarkable. Chest x-ray demonstrated a stable left-sided chest wall port without acute cardiopulmonary process. The patient received supplemental IV fluids and was started on empiric broad-spectrum antimicrobials. He was subsequently admitted to the medical intensive care unit. [facility], [facility] Medical History Abnormal results of thyroid function studies Atrial fibrillation Colon cancer COVID-19 Electrical isolation of left atrial appendage after cardiac ablation procedure for atrial fibrillation Essential hypertension HLD (hyperlipidemia) Inguinal hernia KARIN on CPAP PAF (paroxysmal atrial fibrillation) Home Medications amlodipine 5 mg tablet 5 mg PO DAILY 10/14/20 [History Last Taken Unknown] cholecalciferol (vitamin D3) 50 mcg (2,000 unit) tablet (Vitamin D3) 2,000 unit PO DAILY 10/14/20 [History Last Taken Unknown] duloxetine 60 mg capsule,delayed release 60 mg PO DAILY 10/14/20 [History Last Taken Unknown] meclizine 12.5 mg tablet 12.5 mg PO Q8H PRN Vertigo 10/14/20 [History Last Taken Unknown] omeprazole 40 mg capsule,delayed release 40 mg PO DAILY 10/14/20 [History Last Taken Unknown] valsartan 80 mg tablet 80 mg PO BID #0 tabs 10/15/20 [Rx Last Taken Unknown] apixaban 5 mg tablet 5 mg PO BID 12/08/21 [History Last Taken Unknown] metoprolol tartrate 50 mg tablet 50 mg PO BID 02/16/22 [History Last Taken Unknown] atorvastatin 40 mg tablet 40 mg PO QHS #90 tabs 02/24/22 [Rx Last Taken Unknown] ferrous gluconate 324 mg (38 mg iron) tablet 324 mg PO DAILY 04/11/22 [History Last Taken Unknown] potassium chloride 20 mEq tablet,extended release(part/cryst) (Klor-Con M) 20 meq PO DAILY 04/11/22 [History Last Taken Unknown] promethazine 25 mg tablet 25 mg PO Q6H PRN Nausea 04/11/22 [History Last Taken Unknown] Allergy/AdvReac Type Severity Reaction Status Date / Time No Known Allergies Allergy Verified 04/11/22 19:59 Family History Father Heart disease CHF in 50s Sister A-fib Surgical History History of radiofrequency ablation procedure for cardiac arrhythmia (~02/17/21) Previous back surgery Social History Smoking Status: Never smoker ROS ROS Narrative 10 systems were reviewed with pertinent positives as noted in the HPI above. Physical Exam Const alert and no apparent distress General Appearance: cooperative; Negative for ill appearing HEENT normocephalic, head/scalp atraumatic and moist oral mucous membranes Eyes PERRL, EOMs intact bilaterally and conjunctivae normal Neck supple General: trachea midline Chest inspection of chest normal Chest Narrative: Stable appearing chest wall port. Resp normal respiratory effort Auscultation: Negative for rales, rhonchi or wheezes Cardio regular rate and regular rhythm GI normal to inspection, nondistended, normoactive bowel sounds Extremity no clubbing, cyanosis or edema Skin no rashes or lesions noted Neuro oriented x3, CN's II-XII intact bilaterally, moves all extremities and no focal motor deficits Psych cooperative and affect normal Lab / Micro Data Result Diagrams: 04/12/22 05:00 04/12/22 05:00 Labs: Laboratory Results - last 24 hr 04/11/22 20:30: WBC 12.4 H, RBC 4.67, Hgb 13.8, Hct 42.9, MCV 91.9, MCH 29.6, MCHC 32.2, RDW Std Deviation 61.5 H, RDW Coeff of Volodymyr 18.8 H, Plt Count 78 L, MPV 11.3, Immature Gran % (Auto) 0.300, Neut % (Auto) 86.5 H, Lymph % (Auto) 10.2 L, [place] % (Auto) 2.9, Eos % (Auto) 0.0, Baso % (Auto) 0.1, Absolute Neuts (auto) 10.7 H, Absolute Lymphs (auto) 1.26, Nucleated RBC % 0, Differential Comment SCANNED 04/11/22 20:30: PT 14.5, INR 1.2, APTT 23.7 L 04/11/22 20:30: Sodium 137, Potassium 4.3, Chloride 104, Carbon Dioxide 25.0, Anion Gap 8, BUN 17, Creatinine 1.29, Estim Creat Clear Calc 61.86, Est GFR (MDRD) Af Amer 74, Est GFR (MDRD) Non-Af 61, BUN/Creatinine Ratio 13.2, Glucose 162 H, Calcium 9.3, Total Bilirubin 0.60, AST 79 H, ALT 126 H, Alkaline Phosphatase 155 H, Total Protein 7.3, Albumin 3.7, Globulin 3.6, Albumin/Globulin Ratio 1.0 04/11/22 20:30: Lactic Acid 2.4 H* 04/12/22 00:45: Urine Color Yellow, Urine Clarity Clear, Urine pH 6.0, Ur Specific [place] 1.015, Urine Protein 15 H, Urine Glucose (UA) Normal, Urine Ketones Negative, Urine Occult Blood Negative, Urine Nitrite Negative, Urine Bilirubin Negative, Urine Urobilinogen Normal, Ur Leukocyte Esterase Negative, Urine RBC 0 SEEN, Urine WBC 0 SEEN, Ur Squamous Epith Cells 0 SEEN, Urine Bacteria 0 SEEN, Urine Mucus 0 SEEN 04/12/22 01:15: Lactic Acid 2.4 H* 04/12/22 05:00: WBC 11.1 H, RBC 4.04 L, Hgb 12.1 L, Hct 36.9 L, MCV 91.3, MCH 30.0, MCHC 32.8, RDW Std Deviation 63.0 H, RDW Coeff of Volodymyr 19.4 H, Plt Count 68 L, MPV 10.9, Immature Gran % (Auto) 0.400, Neut % (Auto) 88.1 H, Lymph % (Auto) 7.2 L, [place] % (Auto) 4.1, Eos % (Auto) 0.0, Baso % (Auto) 0.2, Absolute Neuts (auto) 9.8 H, Absolute Lymphs (auto) 0.80 L, Nucleated RBC % 0 04/12/22 05:00: Sodium 140, Potassium 4.2, Chloride 109 H, Carbon Dioxide 24.0, Anion Gap 7, BUN 19 H, Creatinine 1.22, Estim Creat Clear Calc 65.41, Est GFR (MDRD) Af Amer 79, Est GFR (MDRD) Non-Af 65, BUN/Creatinine Ratio 15.6, Glucose 146 H, Calcium 8.4 L Micro: Microbiology 04/11/22 21:30 Nasal Secretion SARS-CoV-2 & FLU Antigen (Rapid) - Final Radiology Impression Chest X-Ray 04/11/22 21:00 IMPRESSION: Degenerative changes, as described above. No demonstrated acute cardiopulmonary process. Electronically Signed: Rafael Stovall MD at 22:14 EST , Charges/Coding Visit Charges Inpatient E&M: 80308 Init Hosp L3
--- NOTE | 2022-04-12 11:55 | CASEMGMT ---
RN CM Face to Face with patient for initial transition planning/care coordination assessment. RN CM introduced self and role at [facility]. Patient sitting in chair, alert and oriented, daughter at bedside. Patient willing to participate in assessment and is able to answer all questions appropriately. Care providers, pharmacy, and demographics verified. Patient wishes to discharge home, denies need for home health at this time. Patient states he has no further needs or concerns at this time. CM to follow for discharge planning needs that may arise. PCP: Mat [facility]ALS Specialists: Soham, oncologist [facility]erred [facility]acy: [facility] Insurance: [employer] Prescription Benefit: yes Living Will/HPOA: yes, Jyotsna Finley LNOK: , daughter Living Arrangements: Patient lives with in a 2 story home with bed and bath on first floor. Patient is independent at home. Transportation: self, , daughter DME/HHC: Patient denies DME in the home. No previous HHC Disposition Plan: Patient to discharge home with family support and follow-up plans in place. Nyla HERMANN, RN, CM
[2022-04-12] MEDS: APIXABAN 5 MG TABLET PO ×2 (11:58→21:10)
--- NOTE | 2022-04-12 14:02 | PN.HOSP_ITS ---
Subjective Subjective Patient seen and examined. He felt better and had no active complaints. He had an uneventful night and denied any fever, chills, cough, chest pain, palpitations, dizziness, nausea, vomiting or diarrhea. Review of systems is otherwise negative. He has remained hemodynamically stable. Objective Data Objective Data Vital Signs: Vital Signs Temp Pulse Resp BP Pulse Ox O2 Del Method 97.7 F L 69 20 H 96/62 98 Room Air 04/12/22 12:00 04/12/22 13:00 04/12/22 13:00 04/12/22 13:00 04/12/22 13:00 04/12/22 13:00 Oxygen Delivery Method Room Air Weight: 226 lb 6.636 oz Body Mass Index (BMI) 34.4 Intake & Output: Intake and Output for Last 24 Hours 04/10/22 04/11/22 04/12/22 23:59 23:59 23:59 Intake Total 1100 / 1100 2540 / 2540 Output Total 1200 / 1200 Balance 1100 / 1100 1340 / 1340 Lab / Micro Data Result Diagrams: 04/12/22 05:00 04/12/22 05:00 Labs: Laboratory Results - last 24 hr 04/11/22 20:30: WBC 12.4 H, RBC 4.67, Hgb 13.8, Hct 42.9, MCV 91.9, MCH 29.6, MCHC 32.2, RDW Std Deviation 61.5 H, RDW Coeff of Volodymyr 18.8 H, Plt Count 78 L, MPV 11.3, Immature Gran % (Auto) 0.300, Neut % (Auto) 86.5 H, Lymph % (Auto) 10.2 L, [place] % (Auto) 2.9, Eos % (Auto) 0.0, Baso % (Auto) 0.1, Absolute Neuts (auto) 10.7 H, Absolute Lymphs (auto) 1.26, Nucleated RBC % 0, Differential Comment SCANNED 04/11/22 20:30: PT 14.5, INR 1.2, APTT 23.7 L 04/11/22 20:30: Sodium 137, Potassium 4.3, Chloride 104, Carbon Dioxide 25.0, Anion Gap 8, BUN 17, Creatinine 1.29, Estim Creat Clear Calc 61.86, Est GFR (MDRD) Af Amer 74, Est GFR (MDRD) Non-Af 61, BUN/Creatinine Ratio 13.2, Glucose 162 H, Calcium 9.3, Total Bilirubin 0.60, AST 79 H, ALT 126 H, Alkaline Phosphatase 155 H, Total Protein 7.3, Albumin 3.7, Globulin 3.6, Albumin/Globulin Ratio 1.0 04/11/22 20:30: Lactic Acid 2.4 H* 04/12/22 00:45: Urine Color Yellow, Urine Clarity Clear, Urine pH 6.0, Ur Specific [place] 1.015, Urine Protein 15 H, Urine Glucose (UA) Normal, Urine Ketones Negative, Urine Occult Blood Negative, Urine Nitrite Negative, Urine Bilirubin Negative, Urine Urobilinogen Normal, Ur Leukocyte Esterase Negative, Urine RBC 0 SEEN, Urine WBC 0 SEEN, Ur Squamous Epith Cells 0 SEEN, Urine Bacteria 0 SEEN, Urine Mucus 0 SEEN 04/12/22 01:15: Lactic Acid 2.4 H* 04/12/22 05:00: WBC 11.1 H, RBC 4.04 L, Hgb 12.1 L, Hct 36.9 L, MCV 91.3, MCH 30.0, MCHC 32.8, RDW Std Deviation 63.0 H, RDW Coeff of Volodymyr 19.4 H, Plt Count 68 L, MPV 10.9, Immature Gran % (Auto) 0.400, Neut % (Auto) 88.1 H, Lymph % (Auto) 7.2 L, [place] % (Auto) 4.1, Eos % (Auto) 0.0, Baso % (Auto) 0.2, Absolute Neuts (auto) 9.8 H, Absolute Lymphs (auto) 0.80 L, Nucleated RBC % 0 04/12/22 05:00: Sodium 140, Potassium 4.2, Chloride 109 H, Carbon Dioxide 24.0, Anion Gap 7, BUN 19 H, Creatinine 1.22, Estim Creat Clear Calc 65.41, Est GFR (MDRD) Af Amer 79, Est GFR (MDRD) Non-Af 65, BUN/Creatinine Ratio 15.6, Glucose 146 H, Calcium 8.4 L Micro: Microbiology 04/11/22 21:30 Nasal Secretion SARS-CoV-2 & FLU Antigen (Rapid) - Final Radiography Diagnostic Testing: Radiology Impression Chest X-Ray 04/11/22 21:00 IMPRESSION: Degenerative changes, as described above. No demonstrated acute cardiopulmonary process. Electronically Signed: Rafael Stovall MD at 22:14 EST , Physical Exam Const alert, oriented x3 and no apparent distress HEENT head/scalp atraumatic, moist oral mucous membranes and oropharynx normal Head and Scalp: normocephalic Mouth: oral and palatal mucosa normal Eyes PERRL, EOMs intact bilaterally and conjunctivae normal Neck no lymphadenopathy and supple Resp normal respiratory effort, no retractions, no use of accessory muscles and clear to auscultation bilaterally Cardio regular rate, regular rhythm, S1 normal heart sound, S2 normal heart sound and no murmurs GI normal to inspection, nondistended, normoactive bowel sounds, soft to palpation, non-tender and non-distended Extremity normal to inspection, full ROM and no clubbing, cyanosis or edema Neuro oriented x3, CN's II-XII intact bilaterally, moves all extremities and no focal motor deficits Sensorium / Orientation: awake and alert Motor Exam: strength 5/5 throughout Psych affect normal Assessment & Plan Assessment/Plan (1) Sepsis: (2) Leukocytosis: (3) Elevated lactic acid level: (4) Fever, unknown origin: PLAN: Plan #SIRS criteria * was hypotensive and tachycardic on admission, with elevated lactic acid. WBc was alsomildly elevated at 12.4 * CXRs showed no acute cardiopulmonary process and urinalysis showed no clear evidence of infection * on Iv vancomycin and zosyn. blood and urine cultures pending * hypotension and tachycardia have resolved * #Colon cancer * diagnosed ~ 15 weeks ago. S/o surgery and just finished his 5th session of chemotherapy * to follow up with oncology on outpatient basis * #History of A. fib: Metoprolol held on admission due to hypotension. On Eliquis. #Secondary hypercoagulable state on account of A. fib: On Eliquis Hypertension: BP meds on hold on account of hypotension #Hyperlipidemia: On statin DVT prophylaxis: not indicated as patient on eliquis. Charges/Coding Visit Charges Inpatient E&M: 82756 Subs Hosp L2
--- NOTE | 2022-04-12 14:55 | NURSING ---
report called to pcu transferred per chair with belongings to room 118
--- NOTE | 2022-04-12 16:42 | NURSING ---
This RN called and gave report to WILBER Drake at [facility].
[2022-04-12] MEDS: Atorvastatin Calcium 40 MG Tablet PO (21:10)
[2022-04-13] MEDS: 0.9% Normal Saline 1,000 ML 100 ML IV (01:11)
[2022-04-13 03:00] VITALS: PULSE 65
[2022-04-13 03:31] VITALS: BP 133/77; PULSE 65; RESP 17; TEMP 36.5; O2SAT 97
[2022-04-13 06:56] LABS: Absolute Lymphocyte Count 1.76 X10^3/uL (0.83-4.51); Absolute Neutrophil Count 2.7 X10^3/uL (2.0-7.7); Basophil# 0.02 X10^3/uL; Basophil% 0.4 % (0-1); Eosinophil# 0.32 X10^3/uL; Eosinophils% 6.1 % (0-5); Hematocrit 35.5 % (40-54); Hemoglobin 11.5 g/dL (13.0-16.5); Lymphocyte # 1.76 X10^3/ul (0.83-4.51); Lymphocyte % 33.5 % (19-41); Mean Corp Hgb Conc 32.4 g/dL (32-36); Mean Corpuscular Hgb 30.1 pg (27.0-32.0); Mean Corpuscular Volume 92.9 fL (80-94); Mean Platelet Vol. 10.9 fl (6.2-12.0); Monocyte% 7.6 % (0-10); NRBC Flagged by Analyzer 0 % (0-5); Neutrophil # 2.72 X10^3/uL (2.7-7.7); Neutrophil % 51.6 % (47-70); POSITIVE COUNT YES; POSITIVE MORPHOLOGY YES; Platelet Count 54 K/mm3 (150-450); RBC Distribution Width CV 19.7 % (11.6-14.6); RBC Distribution Width SD 65.8 fl (35.1-43.9); Red Blood Count 3.82 M/mm3 (4.6-6.2); White Blood Count 5.3 K/mm3 (4.4-11.0)
[2022-04-13 06:59] VITALS: PULSE 65
[2022-04-13 07:04] LABS: Anion Gap 5 (5-15); BUN 18 mg/dL (7-18); BUN/Creat Ratio 19.5 RATIO (10-20); Chloride 112 mmol/L (98-107); Creatinine, Serum 0.92 mg/dL (0.70-1.30); EST Glomerular Filtration Rate 90 mL/min (>60); Est Glom Filt Rate - Afr Amer 109 mL/min (>60); Estimated Creatinine Clearance 86.74 ml/min; Glucose 116 mg/dL (74-106); Potassium 4.2 mmol/L (3.5-5.1); Sodium Level 141 mmol/L (136-145)
[2022-04-13 07:05] LABS: Differential Indicated SCAN CRITERIA MET
[2022-04-13 07:06] VITALS: O2SAT 97
[2022-04-13 07:23] LABS: Anisocytosis 1+; Platelet Estimate MKD DEC (ADEQ)
--- NOTE | 2022-04-13 09:29 | DCINST_ITS ---
Discharge Instructions Diet Discharge Diet: Low fat / Low cholesterol Activity Discharge Activity: Return to Normal Activity Weight Bearing Status: Weight bearing as tolerated Dressing / Incision Call your doctor if you observe: Fever of 101 or Higher, Shortness of breath, Dizziness, Swelling in the ankles and Increased palpitations (irregular heartbeat) Follow Up Care Test Results: Test results from this visit will be discussed in further detail at your follow- up appointment, if applicable. Discharge Plan Admission Admit Date/Time: 04/11/22 23:11 Primary Reason for Your Visit: fever Attending Provider: Nuria Bustamante Primary Care Provider: Carey Rivero Consulting Providers: John Leiva ; Manuelito Reyes Instructions Patient Instructions: ED Fever Control (Adult) Discharge Orders/Prescriptions Prescriptions: Continued apixaban 5 mg tablet 5 mg PO BID amlodipine 5 mg tablet 5 mg PO DAILY Label Comments: TAKE 1 TABLET BY MOUTH EVERY DAY omeprazole 40 mg capsule,delayed release(DR/EC) 40 mg PO DAILY duloxetine 60 mg capsule,delayed release(DR/EC) 60 mg PO DAILY Label Comments: TAKE 1 CAPSULE EVERY DAY meclizine 12.5 mg Tablet 12.5 mg PO Q8H PRN (Reason: Vertigo) cholecalciferol (vitamin D3) [Vitamin D3] 50 mcg (2,000 unit) Tablet 2,000 unit PO DAILY valsartan 80 mg tablet 80 mg PO BID Qty: 0 0RF Rx Instructions: Hold for SBP less than 120 mmHg potassium chloride [Klor-Con M20] 20 mEq tablet,ER particles/crystals 20 meq PO DAILY Label Comments: TAKE 1 TABLET BY MOUTH EVERY DAY promethazine 25 mg tablet 25 mg PO Q6H PRN (Reason: Nausea) Label Comments: PLEASE SEE ATTACHED FOR DETAILED DIRECTIONS ferrous gluconate 324 mg (38 mg iron) tablet 324 mg PO DAILY Label Comments: TAKE 1 TABLET BY MOUTH EVERY OTHER DAY metoprolol tartrate 50 mg tablet 50 mg PO BID atorvastatin 40 mg tablet 40 mg PO QHS Qty: 90 3RF Referrals / Follow Up: Buck Rousseau DO [Med Staff - Active Staff] - Within 1 Week Carey Rivero NP-C [Primary Care Provider] - Within 2 Weeks Disposition Disposition (needs filled in before D/C Order can be placed): Home, Self Care
--- NOTE | 2022-04-13 09:32 | DS.PCM_ITS ---
Providers Date of Admission: 04/11/22 Date of Discharge: 04/13/22 Primary Care Physician: KRISH Guo Consultations 04/12/22 00:34 Consult: Sas Analyst / Pulmonary Medicine Routine Consulting Provider: Manuelito Reyes Reason for Consult: Sepsis of unknown origin EMERGENT Consult: No MD Notified: Yes Date Notified: 04/11/22 Time Notified: 23:17 Method of Notification: Verbal Method of Consult:: In-Person Reason For Visit: SEPSIS OF UNKNOWN ORIGIN Diagnosis Discharge Diagnosis (1) Fever, unknown origin: Status: Acute Code(s): R50.9 - Fever, unspecified (2) Leukocytosis: Status: Acute Code(s): D72.829 - Elevated white blood cell count, unspecified (3) Elevated lactic acid level: Status: Acute Code(s): R79.89 - Other specified abnormal findings of blood chemistry (4) Sepsis: Status: Acute Code(s): A41.9 - Sepsis, unspecified organism Plan #SIRS criteria * was hypotensive and tachycardic on admission, with elevated lactic acid. WBc was alsomildly elevated at 12.4 * CXRs showed no acute cardiopulmonary process and urinalysis showed no clear evidence of infection * on Iv vancomycin and zosyn. blood and urine cultures pending * hypotension and tachycardia have resolved * #Colon cancer * diagnosed ~ 15 weeks ago. S/o surgery and just finished his 5th session of chemotherapy * to follow up with oncology on outpatient basis * #History of A. fib: Metoprolol held on admission due to hypotension. On Eliquis. #Secondary hypercoagulable state on account of A. fib: On Eliquis Hypertension: BP meds on hold on account of hypotension #Hyperlipidemia: On statin DVT prophylaxis: not indicated as patient on eliquis. Medications at Discharge Home Medications amlodipine 5 mg tablet 5 mg PO DAILY 10/14/20 cholecalciferol (vitamin D3) 50 mcg (2,000 unit) tablet (Vitamin D3) 2,000 unit PO DAILY 10/14/20 duloxetine 60 mg capsule,delayed release 60 mg PO DAILY 10/14/20 meclizine 12.5 mg tablet 12.5 mg PO Q8H PRN Vertigo 10/14/20 omeprazole 40 mg capsule,delayed release 40 mg PO DAILY 10/14/20 valsartan 80 mg tablet 80 mg PO BID #0 tabs 10/15/20 apixaban 5 mg tablet 5 mg PO BID 12/08/21 metoprolol tartrate 50 mg tablet 50 mg PO BID 02/16/22 atorvastatin 40 mg tablet 40 mg PO QHS #90 tabs 02/24/22 ferrous gluconate 324 mg (38 mg iron) tablet 324 mg PO DAILY 04/11/22 potassium chloride 20 mEq tablet,extended release(part/cryst) (Klor-Con M) 20 meq PO DAILY 04/11/22 promethazine 25 mg tablet 25 mg PO Q6H PRN Nausea 04/11/22 Hospital Course Operations None Procedures None Summary of Care Provided Minutes Spent on Discharge: 40 Hospital Course: Patient is a 56-year-old male with a past medical history as outlined who was admitted through the ED on 04/11/2022 with a complaint of fever and chills. Patient has a history of colon cancer status post colectomy and is currently undergoing chemotherapy. He had a fever with temperature of 100.9 Fahrenheit at home. He called his oncologist and was directed to come into the ED. He had assisted nausea and anorexia as well as increased sweating. Review of systems otherwise negative. He had mildly elevated white cell count of 12,400. He was admitted and managed for SIRS criteria with no clear source of infection. He was initially hypotensive and had mildly elevated lactic acid but this resolved with IV fluid administration. He was started on broad-spectrum antimicrobials namely IV vancomycin and Zosyn. Urine and blood cultures were obtained. His hypotension resolved and patient felt much better. His white cell count trended down to normal. Urine culture showed no growth and blood cultures also showed no growth at the time of discharge. He felt much better and was discharged home on 04/13/2022. He is follow-up with his primary care doctor and oncologist within 1 to 2 weeks. Patient seen and examined prior to discharge. He had no active complaints and had an uneventful night. Review of systems otherwise negative. Labs and vitals reviewed. Home medication reviewed and reconciled. Physical Exam Const alert, oriented x3 and no apparent distress General Appearance: cooperative, comfortable and well kempt Orientation / Consciousness: awake Exam Limitations: no limitations HEENT normocephalic, head/scalp atraumatic, hearing grossly normal bilaterally, moist oral mucous membranes and oropharynx normal Mouth: oral and palatal mucosa normal Eyes PERRL, EOMs intact bilaterally and conjunctivae normal Neck no lymphadenopathy and supple Resp normal respiratory effort, no retractions, no use of accessory muscles and clear to auscultation bilaterally Cardio regular rate, regular rhythm, S1 normal heart sound, S2 normal heart sound and no murmurs GI normal to inspection, nondistended, normoactive bowel sounds, soft to palpation, non-tender and non-distended Extremity normal to inspection, full ROM and no clubbing, cyanosis or edema Skin no rashes or lesions noted Neuro oriented x3, CN's II-XII intact bilaterally, moves all extremities and no focal motor deficits Sensorium / Orientation: awake and alert Motor Exam: strength 5/5 throughout Psych affect normal Weight / BMI Weight Weight: 227 lb 15.327 oz Body Mass Index (BMI) 34.4 ABG / Lab / Microbiology Data Result Diagrams: 04/13/22 06:14 04/13/22 06:14 Laboratory: Laboratory Results - last 24 hr 04/13/22 06:14: WBC 5.3, RBC 3.82 L, Hgb 11.5 L, Hct 35.5 L, MCV 92.9, MCH 30.1, MCHC 32.4, RDW Std Deviation 65.8 H, RDW Coeff of Volodymyr 19.7 H, Plt Count 54 L, MPV 10.9, Immature Gran % (Auto) 0.800, Neut % (Auto) 51.6, Lymph % (Auto) 33.5, [place] % (Auto) 7.6, Eos % (Auto) 6.1 H, Baso % (Auto) 0.4, Absolute Neuts (auto) 2.7, Absolute Lymphs (auto) 1.76, Nucleated RBC % 0, Platelet Estimate MKD DEC, Anisocytosis 1+ 04/13/22 06:14: Sodium 141, Potassium 4.2, Chloride 112 H, Carbon Dioxide 24.0, Anion Gap 5, BUN 18, Creatinine 0.92, Estim Creat Clear Calc 86.74, Est GFR (MDRD) Af Amer 109, Est GFR (MDRD) Non-Af 90, BUN/Creatinine Ratio 19.5, Glucose 116 H, Calcium 8.0 L Microbiology: Microbiology 04/12/22 00:45 Urine, Clean Catch Urine Culture - Preliminary Culture exhibits no growth. 04/11/22 21:30 Nasal Secretion SARS-CoV-2 & FLU Antigen (Rapid) - Final D/C Instructions Discharge Diet: Low fat / Low cholesterol Discharge Activity: Return to Normal Activity Weight Bearing Status: Weight bearing as tolerated Call your doctor if you observe: Fever of 101 or Higher, Shortness of breath, Dizziness, Swelling in the ankles and Increased palpitations (irregular hear tbeat) Meaningful Use Info Meaningful Use Diagnoses (Choose all that apply): None applicable Discharge Plan Admission Admit Date/Time: 04/11/22 23:11 Primary Reason for Your Visit: fever Attending Provider: Nuria Bustamante Primary Care Provider: Carey Rivero Consulting Providers: John Leiva ; Manuelito Reyes Instructions Patient Instructions: ED Fever Control (Adult) Discharge Orders/Prescriptions Prescriptions: Continued apixaban 5 mg tablet 5 mg PO BID amlodipine 5 mg tablet 5 mg PO DAILY Label Comments: TAKE 1 TABLET BY MOUTH EVERY DAY omeprazole 40 mg capsule,delayed release(DR/EC) 40 mg PO DAILY duloxetine 60 mg capsule,delayed release(DR/EC) 60 mg PO DAILY Label Comments: TAKE 1 CAPSULE EVERY DAY meclizine 12.5 mg Tablet 12.5 mg PO Q8H PRN (Reason: Vertigo) cholecalciferol (vitamin D3) [Vitamin D3] 50 mcg (2,000 unit) Tablet 2,000 unit PO DAILY valsartan 80 mg tablet 80 mg PO BID Qty: 0 0RF Rx Instructions: Hold for SBP less than 120 mmHg potassium chloride [Klor-Con M20] 20 mEq tablet,ER particles/crystals 20 meq PO DAILY Label Comments: TAKE 1 TABLET BY MOUTH EVERY DAY promethazine 25 mg tablet 25 mg PO Q6H PRN (Reason: Nausea) Label Comments: PLEASE SEE ATTACHED FOR DETAILED DIRECTIONS ferrous gluconate 324 mg (38 mg iron) tablet 324 mg PO DAILY Label Comments: TAKE 1 TABLET BY MOUTH EVERY OTHER DAY metoprolol tartrate 50 mg tablet 50 mg PO BID atorvastatin 40 mg tablet 40 mg PO QHS Qty: 90 3RF Referrals / Follow Up: Buck Rousseau DO [Med Staff - Active Staff] - Within 1 Week Carey Rivero, [facility] [Primary Care Provider] - Within 2 Weeks Disposition Disposition (needs filled in before D/C Order can be placed): Home, Self Care Charges/Coding Visit Charges Inpatient E&M: 51880 Disch Hosp
[2022-04-13 09:37] VITALS: BP 119/69; PULSE 73; RESP 16; TEMP 36.7; O2SAT 99
[2022-04-13] MEDS: DULoxetine Hcl 60 MG Capsule PO (09:40)
[2022-04-13] MEDS: Potassium Chloride Oral Tablet 20 MEQ PO (09:40)
[2022-04-13] MEDS: Pantoprazole Sodium 40 MG Tablet PO (09:40)
[2022-04-13] MEDS: Cholecalciferol (VIT D3) 25 MCG TABLET (1,000 UNITS) 50 MCG PO (09:41)
[2022-04-13] MEDS: APIXABAN 5 MG TABLET PO (09:41)
[2022-04-13] MEDS: 0.9% Saline Lock 10 ML Syringe IV (10:38)
--- NOTE | 2022-04-13 10:42 | NURSING ---
face burler, Genoveva Calvillo to room to flush port and de-access.
== END 2022-04-13 10:56 | disposition home or self-care (01) | DRG 864 ==
LOC: ED 22:42 → ICU 04-12 07:29 → PCU 04-13 09:28 → ICU 08-29 08:55 → PCU 08-29 08:55
PROVIDERS: Admitting Provider Hospitalist; Emergency Provider Emergency Medicine; PCP Nurse Practitioner Family; Visit Provider Student in an Organized Health Care Education/Training Program
DX: R50.9 Fever, unspecified (principal); R65.10 Systemic inflammatory response syndrome (SIRS) of non-infectious origin without acute organ dysfunction; C18.9 Malignant neoplasm of colon, unspecified; I48.0 Paroxysmal atrial fibrillation; D68.69 Other thrombophilia; E78.5 Hyperlipidemia, unspecified; I10 Essential (primary) hypertension; G47.33 Obstructive sleep apnea (adult) (pediatric); Z86.16 Personal history of COVID-19; Z92.21 Personal history of antineoplastic chemotherapy; R74.02 Elevation of levels of lactic acid dehydrogenase [LDH]; Z79.899 Other long term (current) drug therapy; Z79.01 Long term (current) use of anticoagulants
CPT/HCPCS: 36415; 71046; 80048; 80053; 81001; 83605; 85025; 85610; 85730; 87040; 87086; 87428; 96361; 96365; 96366; 96367; 96368; 97802; 99221; 99285; J7030; J7040; J7050; A4216; G0378

== ENCOUNTER → 2023-01-17 | Outpatient (CLI) | payer OTHER, SELFPAY ==
--- NOTE | 2023-01-17 08:43 | CDU_ITS ---
Reason For Study: Dizziness and Giddiness Rt. Velocities/BP Lt. Velocities/BP Prox CCA 87/17 cm/sec. Prox CCA 98/18 cm/sec. Mid CCA 93/18 cm/sec. Mid CCA 97/23 cm/sec. Dist CCA 67/22 cm/sec. Dist CCA 79/25 cm/sec. Prox ICA 78/22 cm/sec. Prox ICA 79/20 cm/sec. Mid ICA 62/25 cm/sec. Mid ICA 82/19 cm/sec. Dist ICA 76/29 cm/sec. Dist ICA 59/23 cm/sec. Rt. ICA/CCA = 0.8. Lt. ICA/CCA = 0.8. Prox ECA 104/14 cm/sec. Prox ECA 109/18 cm/sec. Rt. Vert. 25/5 cm/sec. Lt. Vert. 33/11 cm/sec. Right Extracranial There is intimal thickening but no significant atherosclerotic plaque noted in the right common carotid artery. There is heterogeneous, irregular atherosclerotic plaque noted in the right internal carotid artery. There is no significant atherosclerotic plaque noted in the right external carotid artery. Antegrade flow is noted in the right vertebral artery. Left Extracranial There is intimal thickening but no significant atherosclerotic plaque noted in the left common carotid artery. There is heterogeneous, irregular atherosclerotic plaque noted in the left internal carotid artery. There is no significant atherosclerotic plaque noted in the left external carotid artery. Antegrade flow is noted in the left vertebral artery. Procedure Carotid Duplex [id number]. This is a Carotid Duplex examination using B-mode, color flow and specral Doppler. Exam performed in department. VL/Carotid Duplex Ultrasound Interpretation Summary Mild (<50%) stenosis right extracranial internal carotid. Mild (<50%) stenosis left extracranial internal carotid. Patent and antegrade vertebrals bilaterally. Ordering Physician: Carey Rivero Referring Physician: Carey Rivero Performed By: Michell Nava, TEMO, RVT
== END | disposition home or self-care (01) ==
PROVIDERS: PCP Nurse Practitioner Family; Referring Provider Nurse Practitioner Family; Visit Provider Nurse Practitioner Family
DX: R42 Dizziness and giddiness (principal)
CPT/HCPCS: 93880

== ENCOUNTER → 2023-02-06 | Outpatient (CLI) | payer OTHER, SELFPAY ==
[2023-02-06 18:18] LABS: Cholesterol 134 mg/dL (200); Free T3 2.8 pg/mL (2.18-3.98); High Density Lipoprotein 39 mg/dL; PSA,Total- Diagnostic 0.94 ng/mL (0.0-4.0); Thyroid Stim Hormone (TSH) 0.44 uIU/mL (0.358-3.74); Triglycerides 179 mg/dL; Very Low Density Lipoprotein 36 mg/dL (5-40)
== END | disposition home or self-care (01) ==
LOC: MTLAB 15:49
PROVIDERS: PCP Nurse Practitioner Family; Referring Provider Nurse Practitioner Family; Visit Provider Nurse Practitioner Family
DX: E05.90 Thyrotoxicosis, unspecified without thyrotoxic crisis or storm (principal); E78.00 Pure hypercholesterolemia, unspecified; Z12.5 Encounter for screening for malignant neoplasm of prostate
CPT/HCPCS: 36415; 80061; 84153; 84439; 84443; 84481

== ENCOUNTER → 2024-08-30 | Outpatient (CLI) | payer OTHER, SELFPAY ==
[2024-08-30 09:57] LABS: Microalbumin,Random Urine < 12.0 mg/L (NO RANGE EST.); Microalbumin:Creatinine Ratio UNABLE TO CALCULATE mg/g CRE
[2024-08-30 12:31] LABS: Cholesterol 123 mg/dL (<=200); High Density Lipoprotein 27 mg/dL; Low Density Lipoprotein Calc. 77 mg/dL; Thyroid Stim Hormone (TSH) 0.474 uIU/mL (0.300-4.200); Triglycerides 97 mg/dL; Very Low Density Lipoprotein 19 mg/dL (5-40); cholesterol:hdl ratio screen 4.59
[2024-08-30 13:41] LABS: ALB/GLOB Ratio 1.5 RATIO (0.9-2.4); AST(SGOT) 26 U/L (<=37); Alanine Aminotransfer ALT/SGPT 32 U/L (<=46); Albumin, Serum 4.1 g/dL (3.5-5.0); Alkaline Phosphatase 131 U/L (40-129); Anion Gap 11 (5-15); BUN 19 mg/dL (4-19); BUN/Creat Ratio 14.6 RATIO (10-20); Calcium,Total 9.1 mg/dL (7.6-11.0); Carbon Dioxide 21.2 mmol/L (21.0-32.0); Chloride 108 mmol/L (98-108); Creatinine, Serum 1.27 mg/dL (0.70-1.20); EST Glomerular Filtration Rate 65 (>60); Globulin 2.7 g/dL (2.2-4.2); Glucose 103 mg/dL (70-99); Potassium 4.1 mmol/L (3.3-5.1); Protein, Total 6.8 g/dL (5.9-8.4); Sodium Level 141 mmol/L (133-145); Total Bilirubin 0.45 mg/dL (0.00-1.30)
[2024-09-01 17:08] LABS: PSA, Total 0.9 ng/mL (0.0-4.0)
== END | disposition home or self-care (01) ==
LOC: LAB 07:48
PROVIDERS: PCP Nurse Practitioner Family; Referring Provider Nurse Practitioner Family; Visit Provider Nurse Practitioner Family
DX: I10 Essential (primary) hypertension (principal); E78.00 Pure hypercholesterolemia, unspecified; Z12.5 Encounter for screening for malignant neoplasm of prostate; E05.90 Thyrotoxicosis, unspecified without thyrotoxic crisis or storm
CPT/HCPCS: 36415; 80053; 80061; 82043; 82570; 84153; 84443